=== PATIENT | female | born 1955 | race Caucasian/White ===

== ENCOUNTER 2025-03-27 09:19 | Outpatient (AMB) | payer OTHER, SELFPAY ==
--- NOTE | 2025-03-27 09:24 | MHC.OFFWIV ---
Intake Vital Signs 03/27/25 09:31 Height 5 ft 7 in Weight 246 lb BMI 38.5 BP 134/74 Blood Pressure Location Lt brachial Position Sitting Respiration 13 Pulse 86 Pulse Source Pulse Oximeter Temp 97.6 F Temp Source Oral Pulse Oximetry (%) 96 Oxygen Delivery Method Room Air Intake Visit Reasons: Bilateral leg rash /bilateral hand pain Intake Note: Patient c/o itchy rash on both legs and spreading to behind the knees x 6 days. Patient also c/o swollen and px on both hands. Patient Tobacco Use Status: Never used Tobacco Floor Molder Required: No Allergies No Known Allergies Allergy (Verified 03/27/25 09:37) Medication List - Last Reconciled 03/27/25 by LEORA Devlin- acetaminophen ER (Tylenol Arthritis Pain) 650 mg PO Q8H albuterol-budesonide 90-80 mcg/actuation (Airsupra) inhalations inhalation amlodipine 5 mg PO DAILY atorvastatin 40 mg PO DAILY budesonide-formoterol 160-4.5 mcg/actuation inhalation ibuprofen 400 mg PO Q8H Do you need a note to return to daycare/school/sports/work: No HPI HPI Comments History of Present Illness Details History of Present Illness - The patient is a 69-year-old female presenting with rash and hand pain. - Rash began 8-9 days ago post-exposure to high grass, characterized by itching and spreading. - Rash unresponsive to home treatments like alcohol, Benadryl, hydrocortisone, Epsom salts. - Significant hand pain for three months, with reduced functionality in gripping and dexterity. - History of Dupuytren's Contracture diagnosis, previously treated with cortisone injections, last R hand Oct 2024. - Was [facility]'d by [facility] in [facility] that has since closed. - Carpal tunnel surgeries performed prior due to functional impairment bilat. - Has initial intake at [facility] 04/2025 - Previous PCP: Dr Berrios who is retiring, would like to est care here. Review of Systems - Skin: Reports rash, itchiness, and spread behind knees and toes. - Musculoskeletal: Reports bilateral hand pain, finger swelling, limited motion. - Neurologic: Denies any numbness or tingling. Physical Exam General: Well developed, well nourished, in no acute distress. Appears stated age. Head: Normocephalic, atraumatic. Eyes: Pupils are equal, round and reactive to light and accommodation. Conjunctivae are clear. Vision grossly normal. BUE vascularly intact; has decreased active and passive ROM of wrists and fingers; unable to close fist d/t pain; + edema and deformity of bilat hands/fingers. Palmar nodes noted. No erythema, skin intact. Skin: see below. Discussion Notes The patient and I discussed the likely diagnosis of poison meenu dermatitis for her rash, and Dupuytren's contracture concerning her hand pain. I advised the patient on the use of Tecnu, an cxzs-flv-niwdsys product, to help dry out the rash, highlighting the importance of using and laundering a washcloth without reusing it. I also discussed tapering prednisone pills for the rash, mentioning the benefit it may provide to her hand symptoms as well. For the Dupuytren's contracture, I outlined the chronic nature of the disease, limitations that could arise, and considered occupational therapy as a non-invasive therapeutic option. We planned for the patient to continue with the [facility] follow-up for definitive management regarding possible recurrence or complication with contractures. I documented consent for treatment, and we confirmed that [facility] is the preferred pharmacy for medication prescriptions. Assessment and Plan 1. Poison Meenu Dermatitis - Recommend Tecnu for rash drying. - Start prednisone taper for 10 days. 2. Dupuytren's Contracture - Chronic condition. - Continue orthopedics follow-up. - Consider occupational therapy for management. RTO to [facility] care, sooner PRN Patient Instructions - Use Tecnu soap as directed for rash. - Start and complete prednisone taper as prescribed. - Avoid scratching to prevent spreading or worsening the rash. - Follow up with orthopedic appointment for hand therapy options. - Be cautious with the use of your hands until symptoms improve. Consent The patient consented to the proposed management plan for the rash and hand conditions, including the use of prednisone and Tecnu, understanding the potential benefits and risks involved. She acknowledged the chronic nature of Dupuytren's contracture and the potential effectiveness of occupational therapy, expressing understanding and agreement with follow-up plans for her hand condition. Consent was obtained verbally during today's visit. Patient was informed and verbally consented to the use of an ambient scribe for clinic note documentation during this visit. Total time spent caring for the patient today was 30 minutes. This includes time spent before the visit reviewing the chart, time spent during the visit, and time spent after the visit on documentation, reviewing laboratory results, diagnostic imaging, medications, performing a medically necessary evaluation, counseling on diagnoses, care coordination, ordering appropriate tests, ordering appropriate medications, review of tests performed by other providers, reporting test results with the patient, communication with other healthcare providers. [facility] Surgical History (Updated 03/27/25 @ 09:46 by Filomena Fay, [facility]) History of carpal tunnel release of both wrists Social History Patient Tobacco Use Status: Never used Tobacco Physical Exam Vital Signs: Last Vital Signs Temp 97.6 F 03/27/25 09:31 Pulse 86 03/27/25 09:31 Resp 13 03/27/25 09:31 BP 134/74 03/27/25 09:31 Pulse Ox 96 03/27/25 09:31 Oxygen Delivery Method Room Air 03/27/25 09:31 BMI result Body Mass Index 38.5 Assessment & Plan Assessment & Plan (1) Contact dermatitis: Code(s): L25.9 - Unspecified contact dermatitis, unspecified cause Qualifiers: Contact dermatitis type: allergic Contact dermatitis trigger: non-food plants Qualified Code(s): L23.7 - Allergic contact dermatitis due to plants, except food (2) Dupuytren's disease of palm of both hands: Code(s): M72.0 - Palmar fascial fibromatosis [Dupuytren] Plan . Medications: New prednisone 5 tabs x 2 days, 4 tabs x 2 days, 3 tabs x 2 days, 2 tabs x 2 days, 1 tab x 2 days and then STOP. 10 mg PO DIRECTED 10 days 30 tabs 0RF Patient Instructions: Patient Instructions - Use Tecnu soap as directed for rash. - Start and complete prednisone taper as prescribed. - Avoid scratching to prevent spreading or worsening the rash. - Follow up with orthopedic appointment for hand therapy options. - Be cautious with the use of your hands until symptoms improve. Advised to take the medication daily with food. If new lesions crop up while on the taper advised to return to the office as we may need to hold the taper and/or extend the taper to prevent recurrence. Advised to cover the areas to prevent spread using something like a Tegaderm. Wash linen to also help prevent spread. Continue to use the [id number] skin scrubs to help protect the rest of your skin. Do your best to avoid contact. Coding Level of Care Code Est Pt Level 4 (39754) Diagnoses Allergic contact dermatitis due to plants, except food L23.7 Contact dermatitis type: allergic Contact dermatitis trigger: non-food plants Dupuytren's disease of palm of both hands M72.0
[2025-03-27 09:31] VITALS: BP 134/74; PULSE 86; RESP 13; TEMP 36.4; O2SAT 96; BMI 38.5
== END 2025-03-27 09:52 | disposition home or self-care (01) ==
PROVIDERS: Visit Provider Nurse Practitioner Family
DX: L23.7 Allergic contact dermatitis due to plants, except food (principal); M72.0 Palmar fascial fibromatosis [Dupuytren]

== ENCOUNTER → 2025-03-27 09:19 | Outpatient (BNVA) | payer OTHER, SELFPAY | DX: Z13.89 Encounter for screening for other disorder (principal) ==

== ENCOUNTER 2025-05-03 14:49 | Outpatient (AMB) | payer OTHER, SELFPAY ==
--- NOTE | 2025-05-03 14:50 | A.OFFPC_ITS ---
Vital Signs 05/03/25 14:56 Height 5 ft 7 in Weight 246 lb 4 oz BMI 38.6 BP 138/74 Blood Pressure Location Rt brachial Position Sitting Respiration 12 Pulse 86 Pulse Source Pulse Oximeter Temp 97.6 F Temp Source Oral Pulse Oximetry (%) 96 Oxygen Delivery Method Room Air Intake Visit Reasons: EST CARE FROM WALK IN Intake Note: New patient to establish care. Patient c/o of having trouble sleeping. Bsw Required: No Allergies No Known Allergies Allergy (Verified 05/03/25 15:10) Medication List - Last Reconciled 05/03/25 by LEORA Devlin-BC acetaminophen ER (Tylenol Arthritis Pain) 650 mg PO Q8H albuterol-budesonide 90-80 mcg/actuation (Airsupra) inhalations inhalation amlodipine 5 mg PO DAILY atorvastatin 40 mg PO DAILY budesonide-formoterol 160-4.5 mcg/actuation inhalation ibuprofen 400 mg PO Q8H Tobacco use date assessed: 05/03/25 Fall risk assessment: No Falls in past year Last assessed Fall Risk: 05/03/25 Dental Screening Dental Screen Date: 05/03/25 Did you have a dental visit in the last 12 months?: Yes Did you have a dental problem in the last 6 months where you did not have access to dental care?: No Was dental information given to patient?: Patient has dentist HPI HPI Comments History of Present Illness Details 69 y/o F with allergic rhinits, Asthma, chronic diarrhea, HSV, HLd, HTN, lactose intolerance, Lumbar radiculopathy, DIEGO, Prediabetes, RLS, Obesity, Subclinical hypothyroid, hx of vasovagal syncope, Hepatic steaotosis, dupytrens contractures of hands, family hx breast ca (mom age 46, 53; 2 paternal aunts breast ca age 50, Hx of pyelonephritis 02/2023, L ovarian cyst, Uterine fibroid, renal cysts, diastolic HF (Echo 2021 EF 55-60% Grade 1 mild diastolic dysfunction, impaired LV relaxation) s/p loop recorder 2021 (removed 2023), Tonsils and adenoids, bladder sling, tubal ligation, CTS release, Alicia, Appy Fhx: breast ca; Dad 11/2024 has 3 children 2 sons 1 dtr Health Maintenance: Colon due 2028 Mammo 10/2024 wnl DEXA normal 2021 PAP 01/26/25 WNL Tdap 05/03/25 PCV 20 2022, PCV 13 2022, RSV 2023, SHINGLES 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 - Insomnia due to restless legs primaril y occurs during relaxation in the evening. - Long-standing sleep issues with these disturbed sleep patterns. - Attempts self-medication with legal ma jeovannyjuana gummies and ibuprofen. - Chronic pain plays a part in her insom roberto along w/ not being able to turn mind off; worries all of the time. Has never tried RX for sleep or RLS. - Utilizes CPAP without perceived benefi t due to frequent awakenings. - Chronic Stress & anxiety related to fa ther?s and 's illness, amongst other things. - Chronic arthralgia with previous rheum atology referral offering no new dx - Anxiety has necessitated cardiac evalu ations; heart tests returned normal. Stress, echo, holter, etc. - Started w/ UTI sx today and would like to rule this out. - Asthma controlled now; exacerbations h appen quickly. Saw mike > 15 year ago at [facility]. Allergies affect her. Has not trialed montelukast; is going away to [place] and wonders if she can have PRN predisone. - Ovarian cysts has consult w/ [facility] DEVELOPMENT REP upcom ing ? need for removal Review of Systems - General: Reports insomnia. - Musculoskeletal: Reports chronic joint pain; denies fibromyalgia. - Psychiatric: Reports anxiety and stres s. - Neurological: Reports insomnia amplifi ed by restless legs. - Respiratory: Reports episodes warranti ng steroid use; denies asthma exacerbation. - Genitourinary: Reports increased urina tion yesterday. - Gastrointestinal: Reports past chronic diarrhea, currently stable. - Endocrine: Denies any new issues with current medications. - Dermatological: Denies rashes or new s kin changes. Physical Exam General: Well developed, well nourished, in no acute distress. Appears stated age. Head: Normocephalic, atraumatic. Eyes: Pupils are equal, round and reactive to light and accommodation. Conjunctivae are clear. Lungs: Clear to auscultation bilaterally. No rales, rhonchi or wheeze noted. Good air flow in all [place]. Heart: Regular rate and rhythm. No murmurs, click, rubs or gallops are noted. Psych: Mood and affect appropriate Results: LABS 01/25/25 CBC,CMP, LIPIDS, URINE MICRO WNL Discussion Notes During the visit, we discussed the patient?s insomnia, which appears to be compounded by restless leg syndrome, anxiety & chronic musculoskeletal pain. I explained to the patient that duloxetine could help manage her anxiety and chronic pain, whereas ropinirole could specifically target the restless legs symptoms. We discussed the initiation of duloxetine at 20 mg daily with escalation after two weeks and starting ropinirole at 1 mg nightly, titrated based on response. I advised her on potential side effects. We addressed concerns about steroid dependency and discussed that strategies would focus on preventing acute exacerbations of her asthma. She has willingness to cease marijuana-derived treatments. I plan to refer her to a atomic physics teacher for her asthma and have provided a prescription for prednisone if needed acutely. The importance of updating her tetanus immunization was agreed upon. Assessment and Plan 1. Insomnia - Start ropinirole for restless leg dada gement at 1 mg. - Initiate duloxetine for anxiety and ch ronic pain. 2. Restless Leg Syndrome - Treat with nightly ropinirole. 3. Chronic Pain - Prescribe duloxetine. - Consider Celebrex in conjunction as ne eded. 4. Anxiety - Address with duloxetine. 5. Asthma - Refer to pulmonology. - Provide prednisone for acute exacerbat ions. 6. Hypertension, Hyperlipidemia - Maintain current regimen. 7. Immunization - Update tetanus vaccine. 8. UTI sx - check UA CC today. Results p ending @ this time. Scheduled a follow-up visit in four to six weeks to assess treatment outcomes. Consent Patient was informed and verbally consented to the use of an ambient scribe for clinic note documentation during this visit. Total time spent caring for the patient today was 60 minutes. This includes time spent before the visit reviewing the chart, time spent during the visit, and time spent after the visit on documentation, reviewing laboratory results, diagnostic imaging, medications, performing a medically necessary evaluation, counseling on diagnoses, care coordination, ordering appropriate tests, ordering appropriate medications, review of tests performed by other providers, reporting test results with the patient, communication with other healthcare providers. ON LICENSE OF [facility] Surgical History (Updated 05/03/25 @ 15:05 by Filomena Fay [facility]) History of carpal tunnel release of both wrists History of colonoscopy (~2018) Social History (Updated 05/03/25 @ 14:51 by Valencia Ricardo MA) Household Members: Spouse Housing: House Are you a primary critical care unit nurse to a significant other at home: No Do you presently have visiting nurse or other home services: No Alcohol intake: current Alcohol intake frequency: a few times a month Patient Tobacco Use Status: Never used Tobacco e-Cigarette/Vaping Use: Never Used Second Hand Smoke Exposure: No service: No Current occupational status: retired Cognitive needs: No Hearing needs: No Vision needs: Yes (wear glasses) Questionnaire PHQ-9 Over the last 2 weeks, how often have you been bothered by any of the following problems? 1. Little interest or pleasure in doing things: not at all 2. Feeling down, depressed, or hopeless: not at all 3. Trouble falling or staying asleep, or sleeping too much: several days 4. Feeling tired or having little energy: several days 5. Poor appetite or overeating: not at all 6. Feeling bad about yourself - or that you are a failure or have let yourself or your family down: not at all 7. Trouble concentrating on things, such as reading the newspaper or watching television: not at all 8. Moving or speaking so slowly that other people could have noticed. Or the opposite - being so fidgety or restless that you have been moving around a lot more than usual: not at all 9. Thoughts that you would be better off or of hurting yourself in some way: not at all Total score: 2 Depression Screening Interpretation: Negative Depression Screening Done: Yes 89700 - PHQ-9 Billing: Yes Source: Developed by Drs. Micheal Tarango, Sophie Renteria, Donis Segal and colleagues, with an educational ashley from [employer]. Thrive Questionnaire Date Thrive assessed: 05/03/25 I am a: Patient What is your living situation today?: I have a steady place to live Within the past 12 months, did the food you bought not last and you didn't have the money to get more?: Never true Within the past 12 months, did you worry whether your food would run out before you got money to buy more?: Never true Do you have trouble paying for medicines?: No Do you have trouble getting transportation to medical appointments?: No Do you have trouble paying your heating and electricity bill?: No Do you have trouble taking care of your child, family member or friend?: No Do you have trouble with day-to-day activities such as bathing, preparing meals, shopping, managing finances, etc.?: No Are you currently unemployed and looking for a job?: No Are you interested in more education?: No Please select the resources that you would like help with: None Currently or been in a relationship where the following occur: No concerns reported and I choose not to answer THRIVE Score: 0 AUDIT C Alcohol Use Questionnaire (AUDIT-C) 1. How often do you have a drink containing alcohol?: Monthly or less 2. How many drinks containing alcohol do you have on a typical day when you are drinking?: 1 or 2 3. How often do you have six or more drinks on one occasion?: Never Total Score: 1 Score Reviewed/Action Taken: Yes SUSANNA-7 AMB Questionnaire SUSANNA-7 Date SUSANNA - 7 assessed: 05/03/25 Feeling nervous, anxious, or on edge: 0 = Not at all Not being able to stop or control worryin = Not at all Worrying too much about different things: 0 = Not at all Trouble relaxin = Not at all Being so restless that it is hard to sit still: 0 = Not at all Becoming easily annoyed or irritable: 0 = Not at all Feeling afraid as if something awful might happen: 0 = Not at all Total SUSANNA-7 score (0-4 normal; 5-9 mild; 10-14 moderate; 15-21 severe): 0 Source: Developed by Drs. Micheal Tarango, Sophie Renteria, Donis Segal and colleagues, with an educational ashley from [employer]. SUSANNA-7 Assessment Billing SUSANNA-7 Assessment Tool: SUSANNA-7 Assessment 14178 Physical exam (Primary Care) Vital Signs: Last Vital Signs Temp 97.6 F 05/03/25 14:56 Pulse 86 05/03/25 14:56 Resp 12 05/03/25 14:56 BP 140/74 H 05/03/25 14:56 Pulse Ox 96 05/03/25 14:56 Oxygen Delivery Method Room Air 05/03/25 14:56 BMI result Body Mass Index 38.6 BMI Assessment/Plan discussion: High BMI High, discussed plan: lifestyle Tobacco/Smoking Status: Tobacco use Status Tobacco use date assessed 05/03/25 05/03/25 15:00 Patient Tobacco Use Status Never used Tobacco 05/03/25 15:04 e-Cigarette/Vaping Use Never Used 05/03/25 15:04 PHQ-9: PHQ-9 Score PHQ-9: Total score 2 05/03/25 15:07 Depression Screening Interpretation: Negative Thrive Assessment: Date of Thrive Assessment Date Thrive assessed 05/03/25 05/03/25 15:00 Currently or been in a relationship where the following occur: No concerns reported and I choose not to answer Coding Level of Care Code New Pt Level 5 (31948) Complex EM visit Add On G2211 Diagnoses Encounter to establish care Z76.89 Obesity (BMI 30-39.9) E66.9 Moderate persistent asthma without complication J45.40 Asthma persistence: persistent Asthma complication type: uncomplicated Mixed hyperlipidemia E78.2 Hyperlipidemia type: mixed hyperlipidemia Primary hypertension I10 Hypertension type: primary hypertension Prediabetes R73.03 RLS (restless legs syndrome) G25.81 Subclinical hypothyroidism E03.8 History of syncope Z87.898 NAFLD (nonalcoholic fatty liver disease) K76.0 Family history of breast cancer Z80.3 Left ovarian cyst N83.202 Uterine leiomyoma, unspecified location D25.9 Uterine leiomyoma location: unspecified location Renal cyst N28.1 Chronic diastolic heart failure I50.32 Heart failure chronicity: chronic Psychophysiological insomnia F51.04 Insomnia type: psychophysiologic Chronic pain syndrome G89.4 Chronic pain type: chronic pain syndrome DIEGO on CPAP G47.33 Need for Tdap vaccination Z23 SUSANNA (generalized anxiety disorder) F41.1 Dysuria R30.0 Additional Codes SUSANNA-7 Assessment Billing - SUSANNA-7 Assessment Tool: SUSANNA-7 Assessment 92884 ([id number]) PHQ-9 - 93915 - PHQ-9 Billing: Yes ([id number]) Assessment & Plan Assessment & Plan (1) Encounter to establish care: Code(s): Z76.89 - Persons encountering health services in other specified circumstances (2) Obesity (BMI 30-39.9): Code(s): E66.9 - Obesity, unspecified Category: Medical (3) Moderate asthma: Code(s): J45.909 - Unspecified asthma, uncomplicated Category: Medical Qualifiers: Asthma persistence: persistent Asthma complication type: uncomplicated Qualified Code(s): J45.40 - Moderate persistent asthma, uncomplicated (4) HLD (hyperlipidemia): Code(s): E78.5 - Hyperlipidemia, unspecified Category: Medical Qualifiers: Hyperlipidemia type: mixed hyperlipidemia Qualified Code(s): E78.2 - Mixed hyperlipidemia (5) HTN (hypertension): Code(s): I10 - Essential (primary) hypertension Category: Medical Qualifiers: Hypertension type: primary hypertension Qualified Code(s): I10 - Essential (primary) hypertension (6) Prediabetes: Code(s): R73.03 - Prediabetes Category: Medical (7) RLS (restless legs syndrome): Code(s): G25.81 - Restless legs syndrome Category: Medical (8) Subclinical hypothyroidism: Code(s): E03.8 - Other specified hypothyroidism Category: Medical (9) History of syncope: Comment: s/p loop recorder [id number] w/o events Code(s): Z87.898 - Personal history of other specified conditions Category: Medical (10) NAFLD (nonalcoholic fatty liver disease): Code(s): K76.0 - Fatty (change of) liver, not elsewhere classified Category: Medical (11) Family history of breast cancer: Comment: (mom age 46, 53; 2 paternal aunts breast ca age 50) Code(s): Z80.3 - Family history of malignant neoplasm of breast Category: Medical (12) Left ovarian cyst: Code(s): N83.202 - Unspecified ovarian cyst, left side Category: Medical (13) Uterine fibroid: Code(s): D25.9 - Leiomyoma of uterus, unspecified Category: Medical Qualifiers: Uterine leiomyoma location: unspecified location Qualified Code(s): D25.9 - Leiomyoma of uterus, unspecified (14) Renal cyst: Comment: bilat Code(s): N28.1 - Cyst of kidney, acquired Category: Medical (15) Diastolic heart failure: Comment: (Echo 2021 EF 55-60% Grade 1 mild diastolic dysfunction, impaired LV relaxation) Code(s): I50.30 - Unspecified diastolic (congestive) heart failure Category: Medical Qualifiers: Heart failure chronicity: chronic Qualified Code(s): I50.32 - Chronic diastolic (congestive) heart failure (16) Insomnia: Code(s): G47.00 - Insomnia, unspecified Category: Medical Qualifiers: Insomnia type: psychophysiologic Qualified Code(s): F51.04 - Psychophysiologic insomnia (17) Chronic pain: Code(s): G89.29 - Other chronic pain Category: Medical Qualifiers: Chronic pain type: chronic pain syndrome Qualified Code(s): G89.4 - Chronic pain syndrome (18) DIEGO on CPAP: Comment: sleep study 2019 Code(s): G47.33 - Obstructive sleep apnea (adult) (pediatric) Category: Medical (19) Need for Tdap vaccination: Code(s): Z23 - Encounter for immunization Category: Medical (20) SUSANNA (generalized anxiety disorder): Code(s): F41.1 - Generalized anxiety disorder Category: Medical (21) Dysuria: Code(s): R30.0 - Dysuria Plan . Orders: Orders UA CC w/rflx Micro + Cult Today R30.0 - Dysuria TDaP Immunization Today Z23 - Encounter for immunization Referrals Pulmonology Referral G47.33 - Obstructive sleep apnea (adult) (pediatric), J45.909 - Unspecified asthma, uncomplicated Medications: New ropinirole administer 1-3 hours before bedtime 1 mg PO BEDTIME 30 tabs 1RF duloxetine 1 tab daily x 2 weeks then increase to 1 tab bid 20 mg PO DIRECTED 60 caps 1RF prednisone 40 mg (2 x 20 mg) PO DAILY 28 tabs 0RF Boostrix Tdap (diphth,pertus(acell),tetanus) 0.5 mL IM ONCE 0.5 mL 0RF NS Z23 - Encounter for immunization Patient Instructions: Patient Instructions - Start ropinirole for leg symptoms; take 1 mg 1-3 hours before bedtime nightly, if no improvement increase to 2 tabs. Wait another 3 days then increase to max of 3 tabs daily if needed. - Take duloxetine daily in the morning for two weeks, then increase to twice daily. - Use prednisone as needed only for severe asthma attacks. - Refrain from using marijuana gummies. - Attend pulmonology appointment when scheduled. - Receive tetanus vaccination today. - Urine sample obtained today; i will submit results to the portal and treat as needed. - Schedule follow-up in four to six weeks to review efficacy of meds. Walk-In Care (Urgent Care): We Make it Easy Walk-in for urgent medical issues such as: ? Seasonal Allergies ? Insect Bites ? Cough ? Diarrhea ? Acute Asthma Attacks ? Back, Knee or Joint Pain ? Ear Infection ? Fever without a Rash ? Headaches ? Nausea ? [place] Eye, Rash or Skin Irritation ? Sore Throat ? Sports Physicals ? Vomiting Most insurances are accepted. Patients do not need to be part of the [facility] to seek care at the walk-in clinic. Locations [facility] , [place] [address] ? [phone] [facility] [place] Walk-In Care in [place] provides services to ages 18 and over. Open Thursday-Thursday: 8 a.m. to 5 p.m. and Thursday: 9 a.m. to 3 p.m.* *Hours may vary due to staffing availability. To confirm Walk-In Care hours in [place], please call [phone]. [address] [place] [id number] ? [phone] [facility] [place] Walk-In Care in [place] provides services to ages 12 and over. Open Thursday-Thursday: 8 a.m. to 5 p.m. Hours may vary due to staffing availability. To confirm Walk-In Care hours in [place], please call [phone]. LABORATORY SERVICES: [facility] Lab ? Primary Location [address] [place] [address] Thursday through Thursday 6:00 AM ? 5:00 PM Thursday 7:00 AM ? 11:00 AM* [phone] The [facility] Lab is centrally located near the front entrance of the [facility] for easy outpatient access. Convenient parking is provided for outpatients. *Hours may vary due to staffing availability. To confirm Laboratory hours for any location, please call [phone]. Offsite Location For your convenience, we offer offsite laboratory draw stations at the following locations: [address] [facility], [place] [address] [facility], [address], [place] Thursday through Thursday 7:30 AM ? 1:00 PM* [phone] *Hours may vary due to staffing availability. To confirm Laboratory hours for any location, please call [phone]. [place] ? [address] [facility], [place] Thursday through Thursday 6:00 AM ? 3:30 PM* Thursday 6:30 AM ? 3 PM* [phone] *Hours may vary due to staffing availability. To confirm Laboratory hours for any location, please call [phone]. [address] [facility] Thursday through Thursday 7:30 AM ? 4:00 PM* [phone] *Hours may vary due to staffing availability. To confirm Laboratory hours for any location, please call [phone] [place] [address] Thursday through 9:00 AM ? 4:00 PM* *Hours may vary due to staffing availability. To confirm Laboratory hours for any location, please call [phone]. Appointments are not necessary. Walk-ins are welcome. Like all the departments throughout the [facility], our Lab undergoes frequent reviews to ensure the quality and accuracy of test results, and our staff takes special pride in its status as a nationally accredited facility. Patient Portal: ONE PATIENT. ONE RECORD. BETTER CARE. [facility] has a fully integrated, cutting-e [employer] mobile electronic health information system that has revolutionized the way we care for our patients and manage our organization. This system improves communication and coordination enabling us to provide safe, higher-quality care, and an overall positive experience for staff and patients. Our first priority, as always, is to deliver the highest quality care possible. The system is running in the background supporting that priority. This portal is for all [facility] and [facility] services and practices. If you are experiencing any technical difficulties with enrolling or logging into the Patient Portal please complete the [facility] Patient Portal Technical Support Form. [facility] now offers a new secure on-line interactive tool for patients to review their health information ? ?Patient Portal. This interactive web portal will enable patients and their families to take an active role in their care by providing easy, secure access to their health information via the internet. The Patient Portal provides patients with instant access to their health information, including laboratory results, medications, allergies, demographic information, visit history, and more. In addition to managing their own care, parents and health care proxies with authorized consent will appreciate the ability to access the records of those individuals for whom they provide care. Please note: if you wish to gain access (Proxy) to another patient?s portal, you will be required to come to the Medical Records Department in person at [facility]. Both the patient giving proxy access and the proxy will need to provide photo identification and complete the appropriate authorization. The Patient Portal also allows track their appointments online. The [facility] Patient Portal also saves patients time by allowing them to submit updates to their demographic and contact information prior to their visits. Portal email notifications will also alert patients to any new activity on their portal, such as test results and new appointments. In order to initially enroll in the [facility] Patient Portal, you will need to enter some required information including the following: * your [facility] Medical Record number * your personal home email address * name * date of Please note: In order to enroll in the [facility] Patient Portal, we need to have your email address on file in your electronic medical record. ?The email address needs to be specific for one person (yourself) in order for your Portal enrollment to be successful. ?You can update your email address in person with our Registration staff when you are registering for a hospital visit. ?Otherwise, you will need to come to the Health Information Management (Medical Records) Department at [facility]. ?We are open from Thursday ? Thursday from 7:30 a.m. ? 4:30 p.m. ?You will be required to present a photo id. Once you have successfully enrolled in the Patient Portal, you will receive a one-time user id and password for the Portal, sent to your email address. ?This will allow you to log into the Patient Portal within 99 hrs and reset your own logon id and password, and define personal security questions. ?Once your permanent login and password have been set, you can log into the [facility] Patient Portal at any time via the blue button above or from the Portal Logon button on any page of the [facility] website. [facility] and [facility] encourage all of our patients to enroll in Patient Portal as it presents a valuable opportunity for patients and their families to actively participate in their care and stay healthy Welcome to [facility]. ?We look forward to working with you.
[2025-05-03 14:56] VITALS: BP 138/74; PULSE 86; RESP 12; TEMP 36.4; O2SAT 96; BMI 38.6
--- OUTSIDE RECORDS SUMMARY | 2025-05-03 15:24 | XMS_ITS | Encounter Summary ---
Author Organization [facility] Address [address] [place] [address] [place] [phone] Phone Care Team Providers Care Database Design Analyst Name Role Phone Rahat English MD Primary Care Provider + Rahat English MD Primary Care Provider + Encounter Details Date Type Department Care Team (Late st Contact Info) Description 09/17/2017 Ancillary Orders [facility] [address] [place] [id number] Catherine Tidwell MD [address] [facility], [address] [place] [address] [email or web address] Breast screening Social History Tobacco Use Types Packs/Day Years Used Date Smoking Tobacco: Never Assessed Comments Unknown Sex and Gender Information Value Date Recorded Sex Assigned at Female 11/08/2017 1:34 PM EST Legal Sex Female 7:49 PM EST Gender Identity Female 11/08/2017 1:34 PM EST Sexual Orientation Straight 11/08/2017 1: 34 PM EST documented as of this encounter Plan of Treatment Not on file documented as of this encounter Results * BI MAMMOGRAM SCREENING WITH TOMOSYNTHESIS WITH CAD (BILATERAL) (11/02/2017 9:49 AM EST) Anatomical Region Laterality Modality Breast Left, Breast Right, Breast Bilateral Bila teral Mammography 11/02/2017 10:2 2 AM EST Impressions 11/02/2017 10:24 AM EST No mammographic evidence of malignancy. BI-RADS CATEGORY: 1 - Negative. DENSITY: There are scattered fibroglandular densities. POS - [id number] Narrative 11/02/2017 10:24 AM EST Standard digital full-field 2-D C view and two-plane tomographic imaging was performed and compared with multiple prior studies, most recently 09/12/2016, with utilization of computer-aided detection. The breasts are composed of scattered fibroglandular densities. The stromal markings are essentially unchanged in overall appearance and distribution. No dominant spiculated mass, suspicious clustered microcalcifications, or focal zone of pathologic skin thickening or retraction are noted to have arisen in the interim. Procedure Note Jostin Zeng MD - 11/02/2017 Standard digital full-field 2-D C view and two-plane tomographic imagingwas performed and compared with multiple prior studies, most efybgljk15/02/2016, with utilization of computer-aided detection. The breasts are composed of scattered fibroglandular densities. Thestromal markings are essentially unchanged in overall appearance anddistribution. No dominant spiculated mass, suspicious clusteredmicrocalcifications, or focal zone of pathologic skin thickening orretraction are noted to have arisen in the interim. IMPRESSION: No mammographic evidence of malignancy. BI-RADS CATEGORY: 1 - Negative. DENSITY: There are scattered fibroglandular densities. POS - [id number] Catherine Tidwell MD IMG MG EXAMS Final Result documented in this encounter Visit Diagnoses Diagnosis Breast screening Breast screening, unspecified Breast screening Breast screening, unspecified documented in this encounter Additional Health Concerns Infection Onset Date Last Indicated Resolved Time CoV-Risk 12/04/2024 12/04/2024 12/15/2024 1:21 AM EST documented as of this encounter Care Teams Database Design Analyst Relationship Specialty Start Date End Date Rahat English MD [address] [place] [id number] PCP - General Internal Medicine 09/17/17 04/14/22 Rahat English MD [address] [place] [address] [address] [place] [address] PCP - General Internal Medicine 04/15/22 documented as of this encounter Additional Source Comments The information contained in this document represents components of the legal health record. It is not the complete legal health record.[facility]
--- OUTSIDE RECORDS SUMMARY | 2025-05-03 15:24 | XMS_ITS | Data Portability ---
Author Organization [facility]uev[facility], [facility] Address [address] [place] [address] Assessment No assessment recorded. Plan of Treatment Reminders Order Date Submit Date Provider Last Modified By Organization Details Last Modified Time Details Appointments RUBA HAINES T 30 2024 09:15A M Shameka eagle MD Not available Not available Not available Lab None record ed. Referral physic al therap ist referr al - Evalua te & Rx Lumbar Stabil gabrielatio fco dickens 2023 024 [facility] [place], [address], [address], [place], [address], 02/25/2024 08:48:59 Procedures None record ed. Surgeries None record ed. Imaging XR, lumbos acral spine 2023 024 [id number], [address], [place], [address], 02/26/2024 15:14:22 Medication Orders Medrol (Humza) 4 mg tablet s in a dose pack 2023 024 [id number], [address] [facility], [place], [address], 02/12/2024 09:03:37 Patient TargetsNo targets recorded. Patient InstructionsNo instructions recorded. Reason for Referral Physical Therapist Referral for Spinal stenosis of lumbar region Evaluate & RxLumbar Stabilization Program Referring Physician: Ken Villela, Orthopedic Surgery, [id number] Encounter Date: 02/12/2024 Problems Name Problem SNOMED Code Status Onset Date Resolution Date Notes Provider Name and Address Organization Details Recorded Time Nontrauma tic partial rupture of right rotator cuff 886155672744 9109 Active 2016 Problem Code: M75.111; Problem Code Type: ICD-10; Status: 'A'; Not Available [facility] 4 11:57:58 Low back pain 913445701 Active 2023 Ken Villela PA-C [address], [place], [address] , [facility] 4 08:46:36 Spinal stenosis of lumbar region 87293381 Active 2023 Ken Villela PA-C [address], [place], [address] , [facility] 4 09:01:02 Problem Notes None recorded. Medical Equipment None Reported. Allergies Allergen ID Allergen Name Allergen Category Reaction Reaction Severity Criticality Documentation Date Start Date Code Code System Note Provider Name and Address Organization Details Recorded Time 266782 tree and shrub pollen environme nt,medica tion Not available Not available Not available 02/12/2024 [id number] Ken Villela PA-C [address], [place], [address], [facility] 4 08:45:48 Medications Name Sig Start Date Stop Date Status Note LastModified by Organization Details LastModified Time amoxicillin 500 mg capsule TAKE 4 CAPSULES 1 HOUR PRIOR TO APPOINTMENT active Not Available Not Available Not Available atorvastatin 40 mg tablet TAKE 1 TABLET BY MOUTH EVERY DAY active Not Available Not Available No t Available prednisone 10 mg tablet PLEASE SEE ATTACHED FOR DETAILED DIRECTIONS active Not Available Not Available N ot Available atorvastatin 20 mg tablet TAKE 1 TABLET BY MOUTH EVERY DAY active Not Available Not Available No t Available albuterol sulfate 2.5 mg/3 mL (0.083 %) solution for nebulization INHALE 3 ML BY NEBULIZER EVERY 4 HOURS NEEDED FOR WHEEZING/SH ORTNESS OF BREATH active Not Available Not Available No t Available cefpodoxime 200 mg tablet TAKE 1 TABLET BY MOUTH EVERY 12 HOURS FOR 10 DAYS active Not Available Not Available Not Available valacyclovir 1 gram tablet TAKE 1 TABLET BY MOUTH 2 TIMES A DAY START POOJA HERPES LABIALIS active Not Available Not Available No t Available prednisone 20 mg tablet TAKE 3 TABLETS BY MOUTH EVERY DAY active Not Available Not Available No t Available ciprofloxaci n 250 mg tablet TAKE 1 TABLET BY MOUTH EVERY 12 HOURS FOR 3 DAYS active Not Available Not Available N ot Available amlodipine 5 mg tablet TAKE 1 TABLET BY MOUTH EVERY DAY active Not Available Not Available No t Available prednisolone acetate 1 % eye drops,suspen seamus INSTILL 1 DROP INTO AFFECTED EYE TWICE A DAY active Not Available Not Available No t Available erythromycin 5 mg/gram (0.5 %) eye ointment APPLY A SMALL AMOUNT INTO THE RIGHT EYE AT BEDTIME FOR 1 WEEK active Not Available Not Available No t Available pseudoephedr ine-guaifene sin ER 80-700 mg tablet,exten ded release as directed TAKE TWO TABLETS Q 6HRS PRN PAINDO NOT DRIVE ON THIS MEDICATION 2016 active Statu s: 'Curr ent'; Not Available Not Available Not Available omeprazole 20 mg capsule,james yed release TAKE 1 CAPSULE BY MOUTH EVERY DAY active Not Available Not Available No t Available zolpidem 5 mg tablet TAKE 1 TABLET BY MOUTH EVERY DAY AT BEDTIME NEEDED FOR INSOMNIA active Not Available Not Available No t Available methylpredni solone 4 mg tablets in a dose pack TAKE 6 TABLETS ON DAY 1 DIRECTED ON PACKAGE AND DECREASE BY 1 TAB EACH DAY FOR A TOTAL OF 6 DAYS active Not Available Not Available No t Available albuterol sulfate HFA 90 mcg/actuatio n aerosol inhaler INHALE 2 PUFFS INTO THE LUNGS EVERY 6 HOURS NEEDED FOR WHEEZE active Not Available Not Available No t Available fluticasone propionate 50 mcg/actuatio n nasal spray,suspen seamus SPRAY 2 SPRAYS INTO EACH NOSTRIL EVERY MORNING active Not Available Not Available No t Available loratadine 10 mg tablet TAKE 1 TABLET BY MOUTH EVERY DAY active Not Available Not Available No t Available amoxicillin 875 mg-potassium clavulanate 125 mg tablet TAKE 1 TABLET BY MOUTH TWICE A DAY FOR 10 DAYS active Not Available Not Available No t Available moxifloxacin 0.5 % eye drops INSTILL 1 DROP INTO AFFECTED EYE(S) 3 TIMES A DAY active Not Available Not Available Not Available fluocinolone acetonide oil 0.01 % ear drops PLACE 5 DROPS INTO BOTH EARS 2 TIMES A DAY FOR 14 DAYS active Not Available Not Available Not Available olopatadine 0.2 % eye drops ONE DROP IN EACH EYE ONCE A DAY NEEDED FOR IRRITATION active Not Available Not Available N ot Available budesonide-f ormoterol HFA 160 mcg-4.5 mcg/actuatio n aerosol inhaler INHALE 2 PUFFS TWICE A DAY active Not Available Not Available No t Available Vitals Date Recorded Body height Body mass index (BMI) Body weight Provider Name and Address Organization Details Last Updated DateTime 02/12/2024 170.18 cm 38.8 kg/m2 853292.91 g Ken Villela PA-C [facility] [address], [place], [address], [place] [facility] 02/12/2024 08:45:02 Social History None recorded. Functional Status None recorded. Mental Status None recorded. Family History Nothing Reported. Medical History Condition Response Arthritis Y Asthma Y Sleep Apnea Y Hypertension Y Cholesterol Y Gynecological HistoryNo gynecological history recorded. Obstetrics History GPAL:G 0 P 0 0 0 0 Past Encounters Encounter ID Performer Location Encounter Start Date Encounter Closed Date Diagnosis/Indication Diagnosis SNOMED-CT Code Diagnosis ICD10 Code Diagnosis Note [id number] Ken Villela [place] [address] 02/12/2024 08:34:18 02/25/2024 08:48:58 Low back pain 416621054 M54.50 Spinal jeff nosis of lumbar region 73617728 M48.061 Health Concerns Section Related Observation LastModified by Organization Detai ls LastModified Time None Recorded Concern Status LastModified by Organization Details LastModified Time None Recorded Advance Directives Directive None Recorded Payers Insurance Date Sequence Insurance Name Policy Number Policy Mendoza Covered Member ID Mendoza Member ID Guarantor Name 04/18/2025 1 FERNANDO (PPO) [id number] [place] Saucedo [id number] Ellis Saucedo Notes Date Note Type Note Provider Name and Address Organization Details Recorded Time 02/12/2024 text/html I am seeing the patient today under the supervision of Dr. De Jesus who was available but who did not see the patient for today's Urgent Care walk in visit. HPI: Patient is a 68-year-old female who comes into urgent care with chief complaint of low back and neck pain. She reports symptoms have been ongoing for several months in duration she denies any radicular symptoms denies any falls. She has taken oral steroids in the past and given her temporary relief she has not had any formal physical therapy. Past family, medical, social history and review of systems has been reviewed, updated and signed by me and is located in the patient s chart. PHYSICAL EXAMINATION: The patient is well appearing and in no apparent distress. Alert and oriented x3. Gait is symmetric. Examination of her cervical spine shows mild kyphotic bump in the back of her neck, restricted range of motion no radicular symptoms, intact motor function to deltoid bicep and tricep. Examination of the lumbar spine today findings include restricted range of motion about 50% normal, no active dural signs, symptoms are alleviated with sitting and improved with standing tenderness to palpation along paraspinous musculature, intact knee flexion strength extension strength plantarflexion dorsiflexion and EHL function. Peripheral, vascular, lymphatic examination, skin, neurological, coordination, reflexes, sensation are within normal limits. X-RAY REPORT: X-rays were ordered, obtained and independently reviewed today at [facility] 2 views of the lumbar spine show degenerative lumbar spine disease from L3-L5. 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 PLAN: Treatment options reviewed recommended physical therapy which was provided, additionally recommended performed prescription for Medrol Dosepak risk factors of these medications discussed. If symptoms not improve would consider physiatry for follow-up care and talk about injection management which we currently do not provide in our office. Ken Villela PA-C [address] [facility] [address], [place], [address], [facility] 02/12/2024 09:08:32 OBGyn Episode No OBEpisode recorded.
== END 2025-05-03 15:54 | disposition home or self-care (01) ==
LOC: HO.HMCFM 14:50
PROVIDERS: PCP Nurse Practitioner Family; Visit Provider Nurse Practitioner Family
DX: I11.0 Hypertensive heart disease with heart failure (principal); I50.32 Chronic diastolic (congestive) heart failure; E66.9 Obesity, unspecified; Z68.38 Body mass index [BMI] 38.0-38.9, adult; J45.40 Moderate persistent asthma, uncomplicated; Z76.89 Persons encountering health services in other specified circumstances; E78.2 Mixed hyperlipidemia; R73.03 Prediabetes; G25.81 Restless legs syndrome; R30.0 Dysuria; Z87.898 Personal history of other specified conditions; Z23 Encounter for immunization

== ENCOUNTER 2025-05-03 15:44 | Outpatient (REF) | payer OTHER, SELFPAY ==
[2025-05-03 17:44] LABS: Appearance Urine Clear; Glucose Urine UA Negative (Negative); PH 6.0 (5.0-9.0); Specific Gravity - Urine 1.020 (1.005-1.025); UMIC TRIGGER UACC YES
[2025-05-03 18:05] LABS: UACC Culture Trigger YES
== END 2025-05-03 15:45 | disposition home or self-care (01) ==
LOC: HO.WFDLDS 15:44
PROVIDERS: Visit Provider Nurse Practitioner Family
DX: Z76.89 Persons encountering health services in other specified circumstances (principal); Z23 Encounter for immunization; E66.9 Obesity, unspecified; Z68.38 Body mass index [BMI] 38.0-38.9, adult; J45.40 Moderate persistent asthma, uncomplicated; E78.2 Mixed hyperlipidemia; R73.03 Prediabetes; G25.81 Restless legs syndrome; E03.8 Other specified hypothyroidism; K76.0 Fatty (change of) liver, not elsewhere classified; N83.202 Unspecified ovarian cyst, left side; D25.9 Leiomyoma of uterus, unspecified; N28.1 Cyst of kidney, acquired; I11.0 Hypertensive heart disease with heart failure; I50.32 Chronic diastolic (congestive) heart failure; F51.04 Psychophysiologic insomnia; G89.4 Chronic pain syndrome; G47.33 Obstructive sleep apnea (adult) (pediatric); F41.1 Generalized anxiety disorder; R30.0 Dysuria; Z99.89 Dependence on other enabling machines and devices; Z87.898 Personal history of other specified conditions; Z80.3 Family history of malignant neoplasm of breast; Z13.31 Encounter for screening for depression; Z13.39 Encounter for screening examination for other mental health and behavioral disorders
CPT/HCPCS: 81001; 87086; 87088; 87186; 90471; 90715; 96127

== ENCOUNTER 2025-06-07 10:24 | Outpatient (AMB) | payer OTHER, SELFPAY ==
--- NOTE | 2025-06-07 10:26 | A.OFFPC_ITS ---
Vital Signs 06/07/25 10:31 06/07/25 10:58 Height 5 ft 7 in Weight 236 lb BMI 37.0 BP 142/78 H 136/84 Blood Pressure Location Lt brachial Lt brachial Position Sitting Sitting Respiration 13 Pulse 76 Pulse Source Pulse Oximeter Temp 97.6 F Temp Source Oral Pulse Oximetry (%) 96 Oxygen Delivery Method Room Air Intake Visit Reasons: 4-6 weeks 30 min fu on med start Intake Note: Follow up on med start. Patient is having a partial hysterectomy surgery on 06/14/25. Manager Pricing Required: No Allergies No Known Allergies Allergy (Verified 06/07/25 10:39) Medication List - Last Reconciled 06/07/25 by LEORA Devlin-LUCILA acetaminophen ER (Tylenol Arthritis Pain) 650 mg PO Q8H albuterol-budesonide 90-80 mcg/actuation (Airsupra) inhalations inhalation amlodipine 5 mg PO DAILY atorvastatin 40 mg PO DAILY budesonide-formoterol 160-4.5 mcg/actuation inhalation cefixime 400 mg PO DAILY 7 days duloxetine 20 mg PO DIRECTED ibuprofen 400 mg PO Q8H prednisone 40 mg (2 x 20 mg) PO DAILY ropinirole 1 mg PO BEDTIME Tobacco use date assessed: 06/07/25 Fall risk assessment: No Falls in past year Last assessed Fall Risk: 06/07/25 Dental Screening Dental Screen Date: 06/07/25 Did you have a dental visit in the last 12 months?: Yes Did you have a dental problem in the last 6 months where you did not have access to dental care?: No Was dental information given to patient?: Patient has dentist HPI HPI Comments History of Present Illness Details 69 y/o F with allergic rhinits, Asthma, chronic diarrhea, HSV, HLd, HTN, lactose intolerance, Lumbar radiculopathy, DIEGO, Prediabetes, RLS, Obesity, Subclinical hypothyroid, hx of vasovagal syncope, Hepatic steaotosis, dupytrens contractures of hands, family hx breast ca (mom age 46, 53; 2 paternal aunts breast ca age 50, Hx of pyelonephritis 02/2023, L ovarian cyst, Uterine fibroid, renal cysts, diastolic HF (Echo 2021 EF 55-60% Grade 1 mild diastolic dysfunction, impaired LV relaxation) s/p loop recorder 2021 (removed 2023), Tonsils and adenoids, bladder sling, tubal ligation, CTS release, Alicia, Appy Fhx: breast ca; Dad 11/2024 has 3 children 2 sons 1 dtr Health Maintenance: Colon due 2027 Mammo 10/2024 wnl DEXA normal 2021 PAP 01/26/25 WNL Tdap 05/03/25 PCV 20 2022, PCV 13 2022, RSV 2023, SHINGLES Specialists: Mon[facility]al Stonem[employer] Dr Diya Gonzalez [facility] Dr Diya Gonzalez [facility] Will be having Surgery for cyst removal 06/14/25 Will remove bilat tubes and ovaries 06/14/25 at [facility] History of Present Illness - The patient is a 69-year-old female pr esenting with anxiety, restless legs syndrome, insomnia, and chronic pain management. - Initial side effects of nauseas and GI upset came from ABT for UTI. Resolved after completion. UTI sx are resolved. Feels great taking the duloxetine 20 mg in the morning. Did not increase to twice per day as she did not feels that this was needed. She started the ropinirole 1 mg at bedtime. Reports for the 1st time in a long time she is sleeping, even dreaming. Her overall chronic pain has improved drastically. She has even lost 10 lb. In regards to her hands, she met with a hand surgeon who gave her a cortisone injection in bilateral hands on the 25 of April. This is greatly reduced her pain and improve her range of motion. There was some question of whether or not this was really Dupuytren's versus a rheumatologic disorder. Chart review shows that she has already had an extensive rheumatologic workup and it is unlikely that this is a new rheumatologic disease. Be that as it may she is feeling better. Reviewed with her briefly occupational therapy, would like to hold off on this for now as she will be proceeding with surgery for an ovarian cyst removal. She endorses some mild elevation in her blood pressure upon monitoring at home with systolics in the 150s at times in a couple of diastolic readings in the 90s. She denies any chest pain or shortness of breath. She does have sleep apnea and this is managed with her CPAP. Review of Systems - Musculoskeletal: Reports stiffness and pain in hands; Denies swelling currently. - Neurological: Reports improvement in r estless legs syndrome. - Psychological: Reports decreased anxie ty; Denies worsening of symptoms. - Sleep: Reports insomnia improvement; R eports deep sleep and dreaming. - Cardiovascular: Reports occasional ramona vated blood pressure. - Respiratory: Reports asthma; Denies cu rrent respiratory symptoms. - Gastrointestinal: Denies current sympt oms after discontinuing UTI medication. - General: Denies fever, chills. Physical Exam General: Well developed, well nourished, in no acute distress. Appears stated age. Head: Normocephalic, atraumatic. Eyes: Pupils are equal, round and reactive to light and accommodation. Conjunctivae are clear. Lungs: Clear to auscultation bilaterally. No rales, rhonchi or wheeze noted. Good air flow in all [place]. Heart: Regular rate and rhythm. No murmurs, click, rubs or gallops are noted. Pulses: Peripheral pulses are equal and palpable bilaterally. Extremities: No clubbing, cyanosis nor edema is noted. Psych: Mood and affect appropriate Results: EKG today: NSR CMP, CBC today: see results below Here today for preoperative clearance. Surgery Type: bilateral salpingo-oophorectomy (BSO Anesthesia Type: General Surgeon: Dr Diya Peters Date: 06/14/2025 Any past surgical procedures: Y see above Any complications from anesthesia or in post-op period: Reports difficulty waking up after surgery. ASA or NSAID Use: No Current smoker: No Alcohol use: No Drug use: No METs: > 4 climb flight of stairs, golf, walk, yardwork Medical history: Asthma Y COPD N Obesity BMI 37.0 Diabetes N [place] < 6 weeks, unstable angina, severe valve disease N CHF (Echo 2021 EF 55-60% Grade 1 mild diastolic dysfunction, impaired LV relaxation) RCRI is Class 2 Risk Stratification: 5% Discussion Notes I discussed the management plan with the patient, focusing on anxiety, restless legs syndrome, insomnia, chronic pain, and the recently diagnosed ovarian cyst. I explained the choice to continue duloxetine at a once-daily dose and ropinirole at bedtime due to their current efficacy. We discussed the risk of elevating blood pressure management given recent weight loss and the importance of observing current levels until post-surgical recovery. The need for follow-up on hand pain and considering occupational therapy was discussed. TThe next follow-up for postoperative review and to re-evaluate hypertension was discussed. Patient was given time to ask questions. All questions were answered to their satisfaction. Assessment and Plan 1. Insomnia - Cont ropinirole for restless leg manag ement at 1 mg. - Cont duloxetine for anxiety and chroni c pain. 2. Restless Leg Syndrome - Treat with nightly ropinirole. 3. Chronic Pain/Anxiety - Prescribe duloxetine. - Consider Celebrex in conjunction as ne eded. 4. Chronic Hand Pain - Consider occupational therapy for infl ammation. 5. Asthma - Refer to pulmonology. - Provide prednisone for acute exacerbat ions PRN only 6. Hypertension, Hyperlipidemia - Maintain current regimen. - Monitor BP. At Goal today. 7. Immunization - Update tetanus vaccine. 8. Pre-Op Clearance: Patient is medical ly cleared to proceed with surgery. Patient Instructions - Continue taking duloxetine once daily and ropinirol at bedtime. - Monitor blood pressure at home; report any significant increases. - Follow up after surgery to assess van very and re-evaluate hypertension medication. - Consider occupational therapy for hand pain if symptoms persist. - Notify the medical office of any new o r worsening symptom - RTO Nov for FU sooner as needed. Consent Patient was informed and verbally consented to the use of an ambient scribe for clinic note documentation during this visit. Total time spent caring for the patient today was 60 minutes. This includes time spent before the visit reviewing the chart, time spent during the visit, and time spent after the visit on documentation, reviewing laboratory results, diagnostic imaging, medications, performing a medically necessary evaluation, counseling on diagnoses, care coordination, ordering appropriate tests, ordering appropriate medications, review of tests performed by other providers, reporting test results with the patient, communication with other healthcare providers. COUNTS INCLUDE 234 BEDS AT THE [facility] Surgical History (Updated 05/03/25 @ 15:05 by JOSE Devlin) History of carpal tunnel release of both wrists History of colonoscopy (~2018) Social History (Updated 05/03/25 @ 15:04 by Valencia Ricardo MA) Household Members: Spouse Both parents involved: No Caregiver staying overnight: No Housing: House Are you a primary child care attendant to a significant other at home: No Do you presently have visiting nurse or other home services: No 75 years or older and lives alone: No Alcohol intake: current Alcohol intake frequency: a few times a month Patient Tobacco Use Status: Never used Tobacco e-Cigarette/Vaping Use: Never Used Second Hand Smoke Exposure: No service: No Current occupational status: retired Cognitive needs: No Hearing needs: No Vision needs: Yes (wear glasses) Questionnaire PHQ-9 Over the last 2 weeks, how often have you been bothered by any of the following problems? 1. Little interest or pleasure in doing things: not at all 2. Feeling down, depressed, or hopeless: not at all 3. Trouble falling or staying asleep, or sleeping too much: not at all 4. Feeling tired or having little energy: not at all 5. Poor appetite or overeating: not at all 6. Feeling bad about yourself - or that you are a failure or have let yourself or your family down: not at all 7. Trouble concentrating on things, such as reading the newspaper or watching television: not at all 8. Moving or speaking so slowly that other people could have noticed. Or the opposite - being so fidgety or restless that you have been moving around a lot more than usual: not at all 9. Thoughts that you would be better off or of hurting yourself in some way: not at all Total score: 0 Depression Screening Interpretation: Negative Depression Screening Done: Yes 29772 - PHQ-9 Billing: Yes Source: Developed by Drs. Micheal Tarango, Sophie Renteria, Donis Segal and colleagues, with an educational ashley from [employer]. Thrive Questionnaire Date Thrive assessed: 05/03/25 I am a: Patient What is your living situation today?: I have a steady place to live Within the past 12 months, did the food you bought not last and you didn't have the money to get more?: Never true Within the past 12 months, did you worry whether your food would run out before you got money to buy more?: Never true Do you have trouble paying for medicines?: No Do you have trouble getting transportation to medical appointments?: No Do you have trouble paying your heating and electricity bill?: No Do you have trouble taking care of your child, family member or friend?: No Do you have trouble with day-to-day activities such as bathing, preparing meals, shopping, managing finances, etc.?: No Are you currently unemployed and looking for a job?: No Are you interested in more education?: No Please select the resources that you would like help with: None THRIVE Score: 0 AUDIT C Alcohol Use Questionnaire (AUDIT-C) 1. How often do you have a drink containing alcohol?: Never 3. How often do you have six or more drinks on one occasion?: Never Total Score: 0 SUSANNA-7 AMB Questionnaire SUSANNA-7 Date SUSANNA - 7 assessed: 06/07/25 Feeling nervous, anxious, or on edge: 0 = Not at all Not being able to stop or control worryin = Not at all Worrying too much about different things: 0 = Not at all Trouble relaxin = Not at all Being so restless that it is hard to sit still: 0 = Not at all Becoming easily annoyed or irritable: 0 = Not at all Feeling afraid as if something awful might happen: 0 = Not at all Total SUSANNA-7 score (0-4 normal; 5-9 mild; 10-14 moderate; 15-21 severe): 0 Source: Developed by Drs. Micheal Tarango, Sophie Renteria, Donis Segal and colleagues, with an educational ashley from [employer]. SUSANNA-7 Assessment Billing SUSANNA-7 Assessment Tool: SUSANNA-7 Assessment 83872 Physical exam (Primary Care) Vital Signs: Last Vital Signs Temp 97.6 F 06/07/25 10:31 Pulse 76 06/07/25 10:31 Resp 13 06/07/25 10:31 BP 136/84 06/07/25 10:58 Pulse Ox 96 06/07/25 10:31 Oxygen Delivery Method Room Air 06/07/25 10:31 BMI result Body Mass Index 37.0 Tobacco/Smoking Status: Tobacco use Status Tobacco use date assessed 06/07/25 06/07/25 10:29 Patient Tobacco Use Status Never used Tobacco 06/07/25 10:29 e-Cigarette/Vaping Use Never Used 06/07/25 10:29 PHQ-9: PHQ-9 Score PHQ-9: Total score 0 06/07/25 12:12 Depression Screening Interpretation: Negative Thrive Assessment: Date of Thrive Assessment Date Thrive assessed 05/03/25 06/07/25 10:29 Office Procedures EKG 64705-[id number], Complete Results Reviewed Results Reviewed: Laboratory 06/07/25 Result Units Range Interpretation Provider Comments White Blood Count 7.9 X10*3/uL (4.8-10.8) Red Blood Count 4.58 X10*6/uL (4.20-5.50) Hemoglobin 13.7 g/dl (12.0-16.0) Hematocrit 40.4 % (37.0-47.0) Mean Corpuscular Volume 88.2 fL (80.0-98.0) Mean Corpuscular Hemoglobin 29.9 pg (27.0-33.0) Mean Corpuscular Hemoglobin Concent 33.9 g/dl (31.0-35.0) Red Cell Distribution Width 12.7 % (11.0-16.0) Platelet Count 329 X10*3/uL (160-400) Mean Platelet Volume 9.3 fL (9.4-12.3) Nucleated RBC Absolute Count (auto) 0.000 X10*3/uL (0.0-0.012) Nucleated Red Blood Cells % (auto) 0.0 /100WBC (0.0-0.2) Sodium Level 135 mmol/L (135-145) Potassium Level 4.0 mmol/L (3.3-5.1) Chloride Level 105 mmol/L (96-108) Carbon Dioxide Level 23 mmol/L (22-29) Anion Gap 11 (12-20) Blood Urea Nitrogen 8 mg/dL (9-16) Creatinine 0.67 mg/dL (0.5-1.4) Estimated Creatinine Clearance Calc Not Reportable Estimat Glomerular Filtration Rate > 60 Random Glucose 97 mg/dL (60-115) Calcium Level 9.5 mg/dL (8.4-10.2) Total Bilirubin 0.6 mg/dL (0.0-1.0) Aspartate Amino Transf (AST/SGOT) 24 U/L (5-31) Alanine Aminotransferase (ALT/SGPT) 19 U/L (0-31) Alkaline Phosphatase 85 U/L (39-117) Total Protein 7.1 g/dL (6.5-8.0) Albumin 4.4 g/dL (3.5-5.0) Coding Level of Care Code Est Pt Level 5 (84182) Complex EM visit Add On G2211 Diagnoses SUSANNA (generalized anxiety disorder) F41.1 Primary hypertension I10 Hypertension type: primary hypertension Obesity (BMI 30-39.9) E66.9 Left ovarian cyst N83.202 Dupuytren's disease of palm of both hands M72.0 RLS (restless legs syndrome) G25.81 Chronic pain syndrome G89.4 Chronic pain type: chronic pain syndrome Moderate persistent asthma without complication J45.40 Asthma complication type: uncomplicated Asthma persistence: persistent DIEGO on CPAP G47.33 Psychophysiological insomnia F51.04 Insomnia type: psychophysiologic Pre-op evaluation Z01.818 CPT Codes EKG - CPT: 14669-[id number], Complete ([id number]) Additional Codes SUSANNA-7 Assessment Billing - SUSANNA-7 Assessment Tool: SUSANNA-7 Assessment 44119 ([id number]) PHQ-9 - 65848 - PHQ-9 Billing: Yes ([id number]) Assessment & Plan Assessment & Plan (1) SUSANNA (generalized anxiety disorder): Code(s): F41.1 - Generalized anxiety disorder Category: Medical (2) HTN (hypertension): Code(s): I10 - Essential (primary) hypertension Category: Medical Qualifiers: Hypertension type: primary hypertension Qualified Code(s): I10 - Essential (primary) hypertension (3) Obesity (BMI 30-39.9): Code(s): E66.9 - Obesity, unspecified Category: Medical (4) Left ovarian cyst: Code(s): N83.202 - Unspecified ovarian cyst, left side Category: Medical (5) Dupuytren's disease of palm of both hands: Code(s): M72.0 - Palmar fascial fibromatosis [Dupuytren] Category: Medical (6) RLS (restless legs syndrome): Code(s): G25.81 - Restless legs syndrome Category: Medical (7) Chronic pain: Code(s): G89.29 - Other chronic pain Category: Medical Qualifiers: Chronic pain type: chronic pain syndrome Qualified Code(s): G89.4 - Chronic pain syndrome (8) Moderate asthma: Code(s): J45.909 - Unspecified asthma, uncomplicated Category: Medical Qualifiers: Asthma complication type: uncomplicated Asthma persistence: persistent Qualified Code(s): J45.40 - Moderate persistent asthma, uncomplicated (9) DIEGO on CPAP: Comment: sleep study 2019 Code(s): G47.33 - Obstructive sleep apnea (adult) (pediatric) Category: Medical (10) Insomnia: Code(s): G47.00 - Insomnia, unspecified Category: Medical Qualifiers: Insomnia type: psychophysiologic Qualified Code(s): F51.04 - Psychophysiologic insomnia (11) Pre-op evaluation: Code(s): Z01.818 - Encounter for other preprocedural examination Plan: Pre-Op Clearance: Patient is medically cleared to proceed with surgery. Plan . Orders: Orders Comprehensive Met. Panel Today Z01.818 - Encounter for other preprocedural examination Complete Blood Count no Diff Today Z01.818 - Encounter for other preprocedural examination Medications: Changed From duloxetine 1 tab daily x 2 weeks then increase to 1 tab bid 20 mg PO DIRECTED 60 caps 1RF To duloxetine 20 mg PO DAILY 90 caps 2RF Refilled ropinirole administer 1-3 hours before bedtime 1 mg PO BEDTIME 90 tabs 2RF Discontinued cefixime Discontinued Reason: Patient Completed Course 400 mg PO DAILY 7 days 7 caps 0RF
[2025-06-07 10:31] VITALS: BP 142/78; PULSE 76; RESP 13; TEMP 36.4; O2SAT 96; BMI 37.0
[2025-06-07 10:58] VITALS: BP 136/84
--- OUTSIDE RECORDS SUMMARY | 2025-06-07 11:15 | XMS_ITS | Encounter Summary ---
Author Organization [facility] Address [address] [place] [phone] Phone Care Team Providers Care Commutator Assembler Name Role Phone Rahat English MD Primary Care Provider + Rahat English MD Primary Care Provider + Encounter Details Date Type Department Care Team (Late st Contact Info) Description 06/15/2019 Ancillary Orders [facility], X-Ray - [address] [address] Ken Rodriguez, LOGAN [address] [place] [id number] Low back pain, unspecified back pain laterality, unspecified chronicity, unspecified whether sciatica present; Neck pain Social History Tobacco Use Types Packs/Day Years Used Date Smoking Tobacco: Never Smokeless Tobacco: Never Alcohol Use Standard Drinks/Week Comments Yes 0 (1 standard drink = 0.6 oz pur e alcohol) rare Comments No Sex and Gender Information Value Date Recorded Sex Assigned at Female 11/08/2017 1:34 PM EST Legal Sex Female 7:49 PM EST Gender Identity Female 11/08/2017 1:34 PM EST Sexual Orientation Straight 11/08/2017 1: 34 PM EST documented as of this encounter Plan of Treatment Not on file documented as of this encounter Results * XR CERVICAL SPINE 4-5 VIEWS (06/15/2019 12:37 PM EDT) Anatomical Region Laterality Modality C-spine Radiographic Bina ging 06/15/2019 3:39 PM EDT Impressions 06/15/2019 3:59 PM EDT 1. Moderate degree of degenerative changes at C6-C7. 2. Minimal retrolisthesis of C4 on C5. 3. Prominent neuroforaminal narrowing on the right at C4-C5 POS - [id number] Narrative 06/15/2019 3:59 PM EDT EXAM: XR CERVICAL SPINE 4-5 VIEWS COMPARISON: None FINDINGS: Minimal retrolisthesis of C4 on C5. Vertebral body heights are maintained. Disc space narrowing and small marginal osteophytes appears to be more prominent at C6-C7, which is obscured by the superimposed structures. Neuroforaminal narrowing is more prominent on the right side at C4-C5. Odontoid process well aligned with lateral masses of C1. Procedure Note Nayana Marie MD - 06/15/2019 EXAM: XR CERVICAL SPINE 4-5 VIEWS COMPARISON: None FINDINGS: Minimal retrolisthesis of C4 on C5. Vertebral body heights are maintained.Disc space narrowing and small marginal osteophytes appears to be moreprominent at C6-C7, which is obscured by the superimposed structures.Neuroforaminal narrowing is more prominent on the right side at C4-C5.Odontoid process well aligned with lateral masses of C1. IMPRESSION: 1. Moderate degree of degenerative changes at C6-C7. 2. Minimal retrolisthesis of C4 on C5. 3. Prominent neuroforaminal narrowing on the right at C4-C5 POS - [id number] Ken Rodriguez DC IMG XR SPINE Final Res ult * XR LUMBOSACRAL SPINE 4 OR MORE VIEWS (06/15/2019 12:36 PM EDT) Anatomical Region Laterality Modality L-spine Radiographic Bina ging 06/15/2019 3:34 PM EDT Impressions 06/15/2019 3:39 PM EDT Degenerative changes, more prominent at L5-S1. POS - [id number] Narrative 06/15/2019 3:39 PM EDT EXAM: XR LUMBOSACRAL SPINE 4 OR MORE VIEWS COMPARISON: None FINDINGS: Transitional lumbosacral vertebrae. Lumbar lordosis is maintained. No significant subluxations. Vertebral heights are maintained. Marked disc space narrowing at L5-S1. Small marginal osteophytes at multiple levels. Symmetric degenerative changes in bilateral sacroiliac joints. Procedure Note Nayana Marie MD - 06/15/2019 EXAM: XR LUMBOSACRAL SPINE 4 OR MORE VIEWS COMPARISON: None FINDINGS: Transitional lumbosacral vertebrae. Lumbar lordosis is maintained. Nosignificant subluxations. Vertebral heights are maintained. Marked discspace narrowing at L5-S1. Small marginal osteophytes at multiple levels.Symmetric degenerative changes in bilateral sacroiliac joints. IMPRESSION: Degenerative changes, more prominent at L5-S1. POS - [id number] Ken Rodriguez DC IMG XR SPINE Final Res ult documented in this encounter Visit Diagnoses Diagnosis Low back pain, unspecified back pain laterality, unspecified chronicity, unspecified whether sciatica present Neck pain Cervicalgia Low back pain, unspecified back pain laterality, unspecified chronicity, unspecified whether sciatica present Neck pain Cervicalgia Low back pain, unspecified back pain laterality, unspecified chronicity, unspecified whether sciatica present Neck pain Cervicalgia documented in this encounter Additional Health Concerns Infection Onset Date Last Indicated Resolved Time CoV-Risk 12/04/2024 12/04/2024 12/15/2024 1:21 AM EST documented as of this encounter Care Teams Commutator Assembler Relationship Specialty Start Date End Date Rahat English MD [address] [place] [phone] PCP - General Internal Medicine 09/17/17 04/14/22 Rahat English MD [address] [place] [phone] PCP - General Internal Medicine 04/15/22 documented as of this encounter Additional Source Comments The information contained in this document represents components of the legal health record. It is not the complete legal health record.[facility]
--- OUTSIDE RECORDS SUMMARY | 2025-06-07 11:15 | XMS_ITS | Encounter Summary ---
Author Organization [facility] Address [address] [place] [address] Phone Care Team Providers Care Production Engine Repairer Name Role Phone Rahat English MD Primary Care Provider + Rahat English MD Primary Care Provider + Encounter Details Date Type Department Care Team (Late st Contact Info) Description 07/19/2020 Ancillary Orders Virtual Department [address] [place] [address] Rahat English MD [address] [place] [address] Breast screening Social History Tobacco Use Types [...] MAMMOGRAM SCREENING WITH TOMOSYNTHESIS WITH CAD (BILATERAL) (09/19/2020 8:49 AM EST) Anatomical Region Laterality Modality Breast Left, Breast Right, Breast Bilateral Bila teral Mammography 09/19/2020 9:27 AM EST Impressions 09/19/2020 9:31 AM EST No findings suspicious for malignancy. In the absence of a worrisome palpable abnormality, annual screening mammography is recommended. BI-RADS CATEGORY: 2 - Benign finding. DENSITY: There are scattered fibroglandular densities. Narrative 09/19/2020 9:31 AM EST COMPARISON: 08/23/2014 through 11/03/2018. Bilateral 3-D tomosynthesis with 2-D reconstructions in the CC and MLO projection of each breast was obtained. Computer-aided detection system also utilized. No new mass, asymmetry, architectural distortion or suspicious calcifications have become apparent on either side. Chronic circumscribed oval density in the lateral aspect of the retroareolar left breast unchanged since at least 2017. Procedure Note Jose Juan Mckeon MD - 09/19/2020 COMPARISON: 08/23/2014 through 11/03/2018. Bilateral 3-D tomosynthesis with 2-D reconstructions in the CC and MLOprojection of each breast was obtained. Computer-aided detection systemalso utilized. No new mass, asymmetry, architectural distortion or suspiciouscalcifications have become apparent on either side. Chronic circumscribed oval density in the lateral aspect of theretroareolar left breast unchanged since at least 2017. IMPRESSION: No findings suspicious for malignancy. In the absence of a worrisomepalpable abnormality, annual screening mammography is recommended. BI-RADS CATEGORY: 2 - Benign finding. DENSITY: There are scattered fibroglandular densities. Rahat English MD IMG MG EXAMS Final Re sult documented in this encounter Visit Diagnoses Diagnosis Breast screening Breast screening, unspecified Breast screening Breast screening, unspecified documented in this encounter Additional Health Concerns Infection Onset Date Last Indicated Resolved Time CoV-Risk 12/04/2024 12/04/2024 12/15/2024 1:21 AM EST documented as of this encounter Care Teams Production Engine Repairer Relationship Specialty Start Date End Date Rahat English MD [address] [address] PCP - General Internal Medicine 09/17/17 04/14/22 Rahat English MD [address] [address] PCP - General Internal Medicine 04/15/22 documented as of this encounter Additional Source Comments The information contained in this document represents components of the legal health record. It is not the complete legal health record.[facility]
--- OUTSIDE RECORDS SUMMARY | 2025-06-07 11:15 | XMS_ITS | Encounter Summary ---
Author Organization [facility] Address [address] [place] [address] [place] [phone] Phone Care Team Providers Care Pulmonology Technician Name Role Phone Rahat English MD Primary Care Provider + Encounter Details Date Type Department Care Team (Late st Contact Info) Description 08/19/2023 Procedure Pass [facility], [address] [address] Social History Tobacco Use Types Packs/Day Years Used Date Smoking Tobacco: Never Smokeless Tobacco: Never Alcohol Use Standard Drinks/Week Comments Yes 0 (1 standard drink = 0.6 oz pur e alcohol) rare Education Answer Date Recorded Are you interested in more education? Not on lu e 02/05/2023 Are you concerned about learning? Not on file 02/05/2023 No 02/05/2023 No 02/05/2023 Digital Access Answer Date Recorded No 03/09/2023 No 03/09/2023 Reliable internet access at home? Not on file 03/09/2023 Device with a working camera? Not on file Comments No Sex and Gender Information Value Date Recorded Sex Assigned at Female 11/08/2017 1:34 PM EST Legal Sex Female 7:49 PM EST Gender Identity Female 11/08/2017 1:34 PM EST Sexual Orientation Straight 11/08/2017 1: 34 PM EST documented as of this encounter Plan of Treatment Not on file documented as of this encounter Visit Diagnoses Not on filedocumented in this encounter Additional Health Concerns Infection Onset Date Last Indicated Resolved Time CoV-Risk 12/04/2024 12/04/2024 12/15/2024 1:21 AM EST documented as of this encounter Care Teams Pulmonology Technician Relationship Specialty Start Date End Date Rahat Enlgish MD [address] [address] PCP - General Internal Medicine 04/15/22 documented as of this encounter Additional Source Comments The information contained in this document represents components of the legal health record. It is not the complete legal health record.[facility]
--- OUTSIDE RECORDS SUMMARY | 2025-06-07 11:15 | XMS_ITS | Encounter Summary ---
Author Organization [facility] Address [address] [place] [address] Phone Care Team Providers Care Telegraph Operator Name Role Phone Rahat English MD Primary Care Provider + Rahat English MD Primary Care Provider + Encounter Details Date Type Department Care Team (Late st Contact Info) Description 02/27/2022 Procedure Pass [facility], [address] [phone] Social History Tobacco Use Types Packs/Day Years [...] documented as of this encounter Care Teams Telegraph Operator Relationship Specialty Start Date End Date Rahat English MD [address] [address] PCP - General Internal Medicine 09/17/17 04/14/22 Rahat English MD [address] [address] PCP - General Internal Medicine 04/15/22 documented as of this encounter Additional Source Comments The information contained in this document represents components of the legal health record. It is not the complete legal health record.[facility]
--- OUTSIDE RECORDS SUMMARY | 2025-06-07 11:15 | XMS_ITS | Encounter Summary ---
Author Organization [facility] Address [address] [place] [address] [place] [address] Phone Care Team Providers Care Marriage Counselor Name Role Phone Rahat English MD Primary Care Provider + Rahat English MD Primary Care Provider + Encounter Details Date Type Department Care Team (Late st Contact Info) Description 09/17/2017 Ancillary Orders [facility] [address] [place] [address] Catherine Tidwell MD [address] [facility], [address] [place] [address] [email or web address] Breast screening Social History [...] There are scattered fibroglandular densities. POS - [id number] Narrative 11/02/2017 10:24 AM EST Standard digital [...] and compared with multiple prior studies, most /02/2016, with utilization of computer-aided detection. The breasts are composed of scattered fibroglandular densities. Thestromal markings are essentially unchanged in overall appearance anddistribution. No dominant spiculated mass, suspicious clusteredmicrocalcifications, or focal zone of pathologic skin thickening orretraction are noted to have arisen in the interim. IMPRESSION: No mammographic evidence of malignancy. BI-RADS CATEGORY: 1 - Negative. DENSITY: There are scattered fibroglandular densities. POS - [id number] Catherine Tidwell MD IMG MG EXAMS Final Result documented in this encounter Visit Diagnoses Diagnosis Breast screening Breast screening, unspecified Breast screening Breast screening, unspecified documented in this encounter Additional Health Concerns Infection Onset Date Last Indicated Resolved Time CoV-Risk 12/04/2024 12/04/2024 12/15/2024 1:21 AM EST documented as of this encounter Care Teams Marriage Counselor Relationship Specialty Start Date End Date Rahat English MD [address] [place] [address] PCP - General Internal Medicine 09/17/17 04/14/22 Rahat English MD [address] [place] [address] [address] [place] [address] PCP - General Internal Medicine 04/15/22 documented as of this encounter Additional Source Comments The information contained in this document represents components of the legal health record. It is not the complete legal health record.[facility]
--- OUTSIDE RECORDS SUMMARY | 2025-06-07 11:15 | XMS_ITS | Encounter Summary ---
Author Organization [facility] Address [address] [place] [address] [place] [address] Phone Care Team Providers Care Clothing Trades Workers Name Role Phone Rahat English MD Primary Care Provider + Encounter Details Date Type Department Care Team (Late st Contact Info) Description 08/19/2023 Procedure Pass [facility], [address] [address] Social History Tobacco Use Types Packs/Day Years [...] documented as of this encounter Care Teams Clothing Trades Workers Relationship Specialty Start Date End Date Rahat English MD [address] [address] PCP - General Internal Medicine 04/15/22 documented as of this encounter Additional Source Comments The information contained in this document represents components of the legal health record. It is not the complete legal health record.[facility]
--- OUTSIDE RECORDS SUMMARY | 2025-06-07 11:15 | XMS_ITS | Encounter Summary ---
Author Organization [facility] Address [address] [place] [address] Phone Care Team Providers Care Yard Jacker Name Role Phone Rahat English MD Primary Care Provider + Encounter Details Date Type Department Care Team (Latest Contact Info) Description 07/10/2023 Transcribe Orders Virtual Department [address] [place] [address] Rahat English MD [address] [place] [phone] Breast screening (Primary Dx) Social History Tobacco Use Types Packs/Day Years [...] documented as of this encounter Visit Diagnoses Diagnosis Breast screening- Primary Breast screening, unspecified documented in this encounter Additional Health Concerns Infection Onset Date Last Indicated Resolved Time CoV-Risk 12/04/2024 12/04/2024 12/15/2024 1:21 AM EST documented as of this encounter Care Teams Yard Jacker Relationship Specialty Start Date End Date Rahat English MD [address] [place] [address] PCP - General Internal Medicine 04/15/22 documented as of this encounter Additional Source Comments The information contained in this document represents components of the legal health record. It is not the complete legal health record.[facility]
--- OUTSIDE RECORDS SUMMARY | 2025-06-07 11:15 | XMS_ITS | Encounter Summary ---
Author Organization [facility] Address [address] [place] [address] Phone Care Team Providers Care Event Marketing Coordinator Name Role Phone Rahat English MD Primary Care Provider + Rahat English MD Primary Care Provider + Encounter Details Date Type Department Care Team (Late st Contact Info) Description 02/27/2022 Procedure Pass [facility], [address] [address] Social History Tobacco Use Types Packs/Day Years [...] documented as of this encounter Care Teams Event Marketing Coordinator Relationship Specialty Start Date End Date Rahat English MD [address] [address] PCP - General Internal Medicine 09/17/17 04/14/22 Rahat English MD [address] [address] PCP - General Internal Medicine 04/15/22 documented as of this encounter Additional Source Comments The information contained in this document represents components of the legal health record. It is not the complete legal health record.[facility]
--- OUTSIDE RECORDS SUMMARY | 2025-06-07 11:15 | XMS_ITS | Encounter Summary ---
Author Organization [facility] Address [address] [place] [address] Phone Care Team Providers Care Store Stock Associate Name Role Phone Rahat English MD Primary Care Provider + Rahat English MD Primary Care Provider + Encounter Details Date Type Department Care Team (Late st Contact Info) Description 07/19/2020 Procedure Pass [facility], [address] [address] Social History Tobacco Use Types Packs/Day Years [...] documented as of this encounter Care Teams Store Stock Associate Relationship Specialty Start Date End Date Rahat English MD [address] [address] PCP - General Internal Medicine 09/17/17 04/14/22 Rahat English MD [address] [address] PCP - General Internal Medicine 04/15/22 documented as of this encounter Additional Source Comments The information contained in this document represents components of the legal health record. It is not the complete legal health record.[facility]
--- OUTSIDE RECORDS SUMMARY | 2025-06-07 11:16 | XMS_ITS | Encounter Summary ---
Author Organization [facility] Address [address] [place] [address] Phone Care Team Providers Care Pantograph Transferrer Name Role Phone Rahat English MD Primary Care Provider + Rahat English MD Primary Care Provider + Encounter Details Date Type Department Care Team (Late st Contact Info) Description 09/30/2021 Procedure Pass [facility], [address] [address] Social History Tobacco Use Types Packs/Day Years [...] documented as of this encounter Care Teams Pantograph Transferrer Relationship Specialty Start Date End Date Rahat English MD [address] [address] PCP - General Internal Medicine 09/17/17 04/14/22 Rahat English MD [address] [address] PCP - General Internal Medicine 04/15/22 documented as of this encounter Additional Source Comments The information contained in this document represents components of the legal health record. It is not the complete legal health record.[facility]
--- OUTSIDE RECORDS SUMMARY | 2025-06-07 11:16 | XMS_ITS | Encounter Summary ---
Author Organization [facility] Address [address] [place] [address] Phone Care Team Providers Care Steam Press Operator Name Role Phone Rahat English MD Primary Care Provider + Encounter Details Date Type Department Care Team (Latest Contact Info) Description 07/31/2022 Transcribe Orders Virtual Department [address] [place] [address] Rahat English MD [address] [place] [address] Breast screening (Primary Dx) Social History Tobacco [...] documented as of this encounter Care Teams Steam Press Operator Relationship Specialty Start Date End Date Rahat English MD [address] [place] [address] PCP - General Internal Medicine 04/15/22 documented as of this encounter Additional Source Comments The information contained in this document represents components of the legal health record. It is not the complete legal health record.[facility]
--- OUTSIDE RECORDS SUMMARY | 2025-06-07 11:16 | XMS_ITS | Encounter Summary ---
Author Organization [facility] Address [address] [place] [address] [place] [address] Phone Care Team Providers Care Master In Chancery Name Role Phone Rahat English MD Primary Care Provider + Encounter Details Date Type Department Care Team (Late st Contact Info) Description 07/31/2022 Procedure Pass [facility], [address] [address] Social History Tobacco Use Types Packs/Day Years [...] documented as of this encounter Care Teams Master In Chancery Relationship Specialty Start Date End Date Rahat English MD [address] [place] [address] PCP - General Internal Medicine 04/15/22 documented as of this encounter Additional Source Comments The information contained in this document represents components of the legal health record. It is not the complete legal health record.[facility]
--- OUTSIDE RECORDS SUMMARY | 2025-06-07 11:16 | XMS_ITS | Encounter Summary ---
Author Organization [facility] Address [address] [place] [address] Phone Care Team Providers Care Verification Engineer Name Role Phone Rahat English MD Primary Care Provider + Rahat English MD Primary Care Provider + Encounter Details Date Type Department Care Team (Late st Contact Info) Description 08/12/2018 Ancillary Orders Virtual Department 30 [place] [address] Rahat English MD [address] [place] [phone] Breast screening Social History Tobacco Use Types [...] MAMMOGRAM SCREENING WITH TOMOSYNTHESIS WITH CAD (BILATERAL) (11/03/2018 8:37 AM EST) Anatomical Region Laterality Modality Breast Left, Breast Right, Breast Bilateral Bila teral Mammography 11/03/2018 11:0 6 AM EST Impressions 11/03/2018 11:07 AM EST No mammographic evidence of malignancy. RECOMMENDED FOLLOWUP: Routine screening mammography is recommended, as clinically appropriate. The results will be sent to the patient. BI-RADS CATEGORY: 1 - Negative. BREAST DENSITY: There are scattered fibroglandular densities. POS - [id number] Narrative 11/03/2018 11:07 AM EST BI MAMMOGRAM SCREENING WITH TOMOSYNTHESIS WITH CAD (BILATERAL) HISTORY: Screening. COMPARISON: Prior studies dating back to 2011, most recently 11/02/2017. TECHNIQUE: Digital breast tomosynthesis was performed in CC and MLO projections. Reconstructed 2-D C-views generated from the tomosynthesis images. Images interpreted in conjunction with R-2 Image Sole Leveling Machine Operator computer-aided detection (CAD). FINDINGS: BREAST DENSITY: There are scattered fibroglandular densities. There are no suspicious masses, suspicious areas of architectural distortion or suspicious clusters of microcalcifications. Procedure Note Heena Mac MD - 11/03/2018 BI MAMMOGRAM SCREENING WITH TOMOSYNTHESIS WITH CAD (BILATERAL) HISTORY: Screening. COMPARISON: Prior studies dating back to 2011, most recently 11/02/2017. TECHNIQUE: Digital breast tomosynthesis was performed in CC and MLOprojections. Reconstructed 2-D C-views generated from the tomosynthesisimages. Images interpreted in conjunction with R-2 Image Checkercomputer-aided detection (CAD). FINDINGS: BREAST DENSITY: There are scattered fibroglandular densities. There are no suspicious masses, suspicious areas of architecturaldistortion or suspicious clusters of microcalcifications. IMPRESSION: No mammographic evidence of malignancy. RECOMMENDED FOLLOWUP: Routine screening mammography is recommended, asclinically appropriate. The results will be sent to the patient. BI-RADS CATEGORY: 1 - Negative. BREAST DENSITY: There are scattered fibroglandular densities. POS - [id number] Rahat English MD IMG MG EXAMS Final Re sult documented in this encounter Visit Diagnoses Diagnosis Breast screening Breast screening, unspecified Breast screening Breast screening, unspecified documented in this encounter Additional Health Concerns Infection Onset Date Last Indicated Resolved Time CoV-Risk 12/04/2024 12/04/2024 12/15/2024 1:21 AM EST documented as of this encounter Care Teams Verification Engineer Relationship Specialty Start Date End Date Rahat English MD [address] [address] PCP - General Internal Medicine 09/17/17 04/14/22 Rahat English MD [address] [address] PCP - General Internal Medicine 04/15/22 documented as of this encounter Additional Source Comments The information contained in this document represents components of the legal health record. It is not the complete legal health record.[facility]
--- OUTSIDE RECORDS SUMMARY | 2025-06-07 11:16 | XMS_ITS | Encounter Summary ---
Author Organization [facility] Address [address] [place] [address] [place] [address] Phone Care Team Providers Care Type Disk Quality Control Supervisor Name Role Phone Rahat English MD Primary Care Provider + Encounter Details Date Type Department Care Team (Late st Contact Info) Description 07/31/2022 Procedure Pass [address] [address] Social History Tobacco Use Types Packs/Day Years [...] documented as of this encounter Care Teams Type Disk Quality Control Supervisor Relationship Specialty Start Date End Date Rahat English MD [address] [place] [address] PCP - General Internal Medicine 04/15/22 documented as of this encounter Additional Source Comments The information contained in this document represents components of the legal health record. It is not the complete legal health record.[facility]
--- OUTSIDE RECORDS SUMMARY | 2025-06-07 11:16 | XMS_ITS | Encounter Summary ---
Author Organization [facility] Address [address] [place] [address] Phone Care Team Providers Care Outsole Beveler Name Role Phone Rahat English MD Primary Care Provider + Rahat English MD Primary Care Provider + Encounter Details Date Type Department Care Team (Late st Contact Info) Description 05/29/2021 Procedure Pass [facility], [address] [phone] Social History Tobacco Use Types Packs/Day Years [...] documented as of this encounter Care Teams Outsole Beveler Relationship Specialty Start Date End Date Rahat English MD [address] [address] PCP - General Internal Medicine 09/17/17 04/14/22 Rahat English MD [address] [address] PCP - General Internal Medicine 04/15/22 documented as of this encounter Additional Source Comments The information contained in this document represents components of the legal health record. It is not the complete legal health record.[facility]
--- OUTSIDE RECORDS SUMMARY | 2025-06-07 11:16 | XMS_ITS | Clinical Summary ---
Author Organization [facility] Address [address] [place] [phone] Phone Care Team Providers Care Log Turner Name Role Phone Rahat English MD Primary Care Provider + Allergies Active Allergy Reactions Criticality Noted Date Comments Dog Dander 05/01/2023 Levonorgestrel-Ethinyl Estrad 2022 Mold Extracts 07/03/2021 Medications amLODIPine (NORVASC) 10 MG tablet 5 mg. Active omega 7-wzk-ial-fish oil (FISH OIL) 1,000 mg (120 mg-180 mg) Cap Activ e magnesium oxide 400 mg Cap Active cholecalciferol (VIT D3) 400 unit/mL oral drops Active ascorbic acid, vitamin C, (VITAMIN C) 500 MG tablet Take 500 mg by mouth daily. Active loratadine (CLARITIN) 5 mg/5 mL syrup Take 5 mg by mouth daily. Active budesonide-form oterol (SYMBICORT) 80-4.5 mcg/actuation inhaler Inhale 2 puffs into the lungs 2 (two) times a day. Active chlorthalidone (HYGROTON) 25 MG tablet Take 25 mg by mouth daily. Active atorvastatin (LIPITOR) 20 MG tablet Take 20 mg by mouth daily. Active rOPINIRole (REQUIP) 0.25 MG tablet Take 0.25 mg by mouth 3 (three) times a day. Active albuterol (ACCUNEB) 0.63 mg/3 mL nebulizer solution Take 1 ampule by nebulization every 6 (six) hours as needed for wheezing. Active spironolactone (ALDACTONE) 25 MG tablet Take 25 mg by mouth daily. Active nitrofurantoin (MACROBID) 100 MG capsule Take 1 capsule (100 mg total) by mouth 2 (two) times a day. 10 capsule 2 Active Additional Information Patient not taking.Reported on 05/01/2023 fluticasone propionate (FLONASE ALLERGY RELIEF) 50 mcg/actuation nasal spray by Nasal route. 2 Active fluticasone propionate (FLOVENT HFA) 44 mcg/actuation inhaler Inhale into the lungs. 0 Active omeprazole (PRILOSEC) 20 MG capsule 3 Active valACYclovir (VALTREX) 1000 MG tablet Take 1 g by mouth. 1 Active methylPREDNISol one (MEDROL DOSEPACK) 4 mg tablet follow package directions 21 tablet 3 Active albuterol 90 mcg/actuation inhaler Inhale 2 puffs into the lungs every 6 (six) hours as needed for wheezing. 18 g 5 Active albuterol 2.5 mg /3 mL (0.083 %) nebulizer solution Take 3 mL (2.5 mg total) by nebulization every 6 (six) hours as needed for shortness of breath/dyspnea. 3 mL 5 Active methylPREDNISol one (MEDROL DOSEPACK) 4 mg tablet follow package directions 21 tablet 5 Active Active Problems Problem Noted Date Diagnosed Date Hypertension 05/01/2023 05/01/2023 Hypercholesterolemia 05/01/2023 05/01/2023 Herpes labialis 05/01/2023 05/01/2023 Class 2 obesity 05/01/2023 05/01/2023 Asthma 05/01/2023 05/01/2023 Allergic rhinitis 05/01/2023 05/01/2023 Obstructive sleep apnea syndrome 05/01/2023 05/01/2023 Prediabetes 05/01/2023 05/01/2023 Restless legs syndrome 05/01/2023 3 Subclinical hypothyroidism 05/01/202305/01 Vasovagal syncope 05/01/2023 05/01/2023 Cyst of left ovary 07/03/2021 Overview (07/03/2021): 8.[address] [place] May 2021 (abd pain, watery diarrhea x 6 months) Declines surgery at this time Assessment & Plan (07/03/2021 3:27 PM EDT): Discussed pros and cons of surgery now vs delay; if pos tumor markers, refer to equipment analyst onc U/s in one month advised to assess for growth Immunizations Immunization Administration Dates Next Due COVID-19 (Pre-08/03) Pfizer Vaccine, mRNA, PF 01/26/2021 INFLUENZA, SPLIT VIRUS, TRIV ALENT W/ PRESERVATIVE IM 07/22/2022,09/01/2010 Influenza Quadrivalent Preservative Free IM 06/13,06/27/2020,07/20/2018 Influenza Trivalent Adjuvant ed Preservative free IM 07/01/2016 Pneumococcal conjugate PCV13 11/28/2021 Zoster live 06/24/2017 Zoster recombinant 11/19/2020,07/16/2020, 020 Family History Medical History Relation Comments Breast cancer Mother Breast cancer Paternal Aunt 1 Breast cancer Paternal Aunt 2 Relation Status Comments Mother Paternal Aunt 1 Paternal Aunt 2 Social History Tobacco Use Types Packs/Day Years [...] Orientation Straight 11/08/2017 1: 34 PM EST Last Filed Vital Signs Vital Sign Reading Time Taken Comments Blood Pressure 147/76 12/04/2024 12:09 PM EST Pulse 83 12/04/2024 12:09 PM EST Temperature 36.6 C (97.8 F) 12/04/2024 12:09 PM EST Respiratory Rate 14 12/04/2024 12:09 PM EST Oxygen Saturation 99% 12/04/2024 12:09 PM EST Inhaled Oxygen Concentration - - Weight 108.9 kg (240 lb) 12/04/2024 12:09 PM EST Height 170.2 cm (5' 7 ) 12/04/2024 12:09 PM EST Body Mass Index 37.59 12/04/2024 12:09 PM EST Plan of Treatment Health Maintenance Due Date Last Done Comments Adult Td,Tdap Booster 1956 LIPID PANEL 1956 DEPRESSION SCREENING 1968 HEPATITIS C SCREENING 1974 COLOGUARD 2001 COLONOSCOPY 2001 COLORECTAL CANCER SCREENING 2001 FIT TEST 2001 FOBT 2001 SIGMOIDOSCOPY 2001 VIRTUAL COLONOSCOPY 2001 RSV VACCINE (1 - Risk 60-74 years 1-dose series) 2016 OSTEOPOROSIS SCREENING INITIAL (ONE-TIME) 2021 PNEUMOCOCCAL VACCINES (50+ years) (2 of 2 - PPSV23) 01/23/2022 11/28/2021 POTASSIUM LEVEL 04/21/2024 04/21/2023 COVID-19 VACCINE ( season) 2024 05/14/2022, 11/30/2021, 02/16/2021, Additional history exists BLOOD PRESSURE 06/03/2025 12/04/2024 MAMMOGRAM 10/22/2025 10/22/2023, 01/2023, 09/30/2021, Additional history exists SCREENING FOR DIABETES 04/21/2026 04/21/2023 ZOSTER VACCINES Completed 11/19/2020, 02/2020, 07/16/2020, Additional history exists SMOKING STATUS SCREENING (Once After 26 Yrs) Completed 12/04/2024 HEPATITIS A VACCINES Aged Out No long er eligible based on patient's age to complete this topic HIB VACCINES Aged Out No longer eligi ble based on patient's age to complete this topic MENINGOCOCCAL VACCINES (ACWY) Aged Out No longer eligible based on patient's age to complete this topic MENINGOCOCCAL VACCINES (B) Aged Out N o longer eligible based on patient's age to complete this topic Medical Devices Not on file Procedures Procedure Name Priority Date/Time Associated Diagnosis Comments BI MAMMOGRAM DIAGNOSTIC WITH TOMOSYNTHESIS WITH CAD (BILATERAL) Routine 10/22/2023 8:26 AM EST Abnormal mammogram BASIC METABOLIC PANEL STAT 04/21/2023 6:05 PM EDT from Last 3 Months or Most Recently Relevant to Health Maintenance Results * BI MAMMOGRAM DIAGNOSTIC WITH TOMOSYNTHESIS WITH CAD (BILATERAL) (10/22/2023 8:26 AM EST) Anatomical Region Laterality Modality Breast Left, Breast Right, Breast Bilateral Bila teral Mammography 10/22/2023 8:59 AM EST Impressions 10/22/2023 9:30 AM EST Stable or slightly smaller small mass in the anterior 7:00 position of the left breast. There has been no progression since 10/23/2021 this can be considered benign. No other imaging findings suspicious for malignancy. Bilateral screening mammography in 12 months is recommended. Results and recommendation conveyed to the patient before leaving the breast center. BI-RADS CATEGORY: 2 - Benign finding. DENSITY: There are scattered fibroglandular densities. Narrative 10/22/2023 9:30 AM EST HISTORY: Follow-up sub-centimeter mass 6:30 position anterior aspect of left breast. EXAM: Bilateral diagnostic mammogram with tomosynthesis and CAD, left breast ultrasound. COMPARISON: Compared with prior mammograms as far back as 11/02/2017 and as recent as 10/15/2022. Left breast ultrasound 10/15/2022, 04/15/2022 and 11/02/2011 reviewed. FINDINGS: No suspicious masses or evidence of architectural distortion on mammography. No suspicious microcalcifications. Loop recorder remains in place in the posterior medial left breast. Directed ultrasound scanning performed of the 6 and 7:00 positions of the left breast. The same hypoechoic mass in the 6-7:00 position 1 cm deep to the nipple persists. It is stable once again in size and configuration. It is possible the mass is slightly smaller as maximal dimension on today's ultrasound is 3 mm compared with 5 mm on 10/15/2022. No other sonographic changes. Procedure Note Ellis Smith MD - 10/22/2023 HISTORY: Follow-up sub-centimeter mass 6:30 position anterior aspect ofleft breast. EXAM: Bilateral diagnostic mammogram with tomosynthesis and CAD, leftbreast ultrasound. COMPARISON: Compared with prior mammograms as far back as 11/02/2017 andas recent as 10/15/2022. Left breast ultrasound 10/15/2022, 04/15/2022 and11/02/2011 reviewed. FINDINGS: No suspicious masses or evidence of architectural distortion onmammography. No suspicious microcalcifications. Loop recorder remains inplace in the posterior medial left breast. Directed ultrasound scanning performed of the 6 and 7:00 positions of theleft breast. The same hypoechoic mass in the 6-7:00 position 1 cm deep tothe nipple persists. It is stable once again in size and configuration. Itis possible the mass is slightly smaller as maximal dimension on today'sultrasound is 3 mm compared with 5 mm on 10/15/2022. No other sonographicchanges. IMPRESSION: Stable or slightly smaller small mass in the anterior 7:00 position of theleft breast. There has been no progression since 10/23/2021 this can beconsidered benign. No other imaging findings suspicious for malignancy.Bilateral screening mammography in 12 months is recommended. Results and recommendation conveyed to the patient before [facility]. BI-RADS CATEGORY: 2 - Benign finding. DENSITY: There are scattered fibroglandular densities. us Marilynn Martinez MD IMG MG EXAMS Final Result * Basic metabolic panel (04/21/2023 6:05 PM EDT) SODIUM 138 133 - 146 mmol/L [facility] CHLORIDE 104 96 - 108 mmol/L [facility] POTASSIUM 4.1 3.3 - 5.1 mmol/L [facility] CO2 24 21 - 35 mmol/L [facility] BUN 9 6 - 19 mg/dL [facility] CREATININE 0.80 0.5 - 1.5 mg/dL [facility] GLUCOSE 89 70 - 99 mg/dL [facility] CALCIUM 9.8 8.4 - 10.3 mg/dL [facility] EGFR 81 >59 mL/min/1.7 3m2 [facility] Comment:Estimated glomerular filtration rate calculated using the CKD-EPI refit equation. ANION GAP 14 10 - 20 mmol/L [facility] Blood 04/21/2023 6:05 PM EDT 04/21/2023 6:24 PM EDT us Marilyn Bernal DO LAB BLOOD ORDERABLES Final R esult Performing Organization Address City/State/[facility] Co de Phone Number [address] [phone] from Last 3 Months or Most Recently Relevant to Health Maintenance Insurance MEDICARE A [facility] MED[facility]ARE A [facility] MEDICARE A MEDICARE A MEDICARE A [facility] MEDICARE A [facility] PPO MEDICARE A [facility]1983 PPO MEDICARE A MEDICARE A [employer] O Care Teams Log Turner Relationship Specialty Start Date End Date Rahat English MD [address] [place] [id number] PCP - General Internal Medicine 04/15/22 Additional Source Comments The information contained in this document represents components of the legal health record. It is not the complete legal health record.[facility]
--- OUTSIDE RECORDS SUMMARY | 2025-06-07 11:16 | XMS_ITS | Encounter Summary ---
Author Organization [facility] Address [address] [place] [phone] Phone Care Team Providers Care Dairy Nutrition Consultant Name Role Phone Rahat English MD Primary Care Provider + Rahat English MD Primary Care Provider + Encounter Details Date Type Department Care Team (Late st Contact Info) Description 05/29/2021 Ancillary Orders Virtual Department [address] [place] [address] Rahat English MD [address] [place] [phone] Breast screening Social History Tobacco Use Types [...] documented as of this encounter Results * (ABNORMAL) BI MAMMOGRAM SCREENING WITH TOMOSYNTHESIS WITH CAD (BILATERAL) (09/30/2021 8:20 AM EST) Anatomical Region Laterality Modality Breast Left, Breast Right, Breast Bilateral Bila teral Mammography 09/30/2021 8:26 AM EST Impressions 09/30/2021 12:29 PM EST Recommend recalling the patient for a left breast asymmetry. Radiology department will attempt to recall the patient. Recall views: Spot compression left MLO. Left ML view. Ultrasound if necessary. BI-RADS CATEGORY: 0 - Incomplete. Need additional imaging evaluation. DENSITY: There are scattered fibroglandular densities. LEFT RECOMMENDATION DUE DATE: 1 Month Left Additional Imaging RIGHT RECOMMENDATION DUE DATE: 12 Months Right Mammography Screening Narrative 09/30/2021 12:29 PM EST 65-year-old female with no current breast symptoms. Comparison made to previous on 09/19/2020 and as far back as 08/23/2014. Interpretation made in conjunction with computer-aided detection and tomosynthesis. There are scattered areas of fibroglandular density. Chronic small right upper outer lymph node. Increase in prominence of the nodular asymmetry in the inferior left breast on the MLO view. There are no suspicious masses, areas of architectural distortion, or suspicious clusters of microcalcifications. Procedure Note Ollie Brown MD - 09/30/2021 65-year-old female with no current breast symptoms. Comparison made toprevious on 09/19/2020 and as far back as 08/23/2014. Interpretation madein conjunction with computer-aided detection and tomosynthesis. There are scattered areas of fibroglandular density. Chronic small rightupper outer lymph node. Increase in prominence of the nodular asymmetry inthe inferior left breast on the MLO view. There are no suspicious masses, areas of architectural distortion, orsuspicious clusters of microcalcifications. IMPRESSION: Recommend recalling the patient for a left breast asymmetry. Radiologydepartment will attempt to recall the patient. Recall views: Spot compression left MLO. Left ML view. Ultrasound ifnecessary. BI-RADS CATEGORY: 0 - Incomplete. Need additional imaging evaluation. DENSITY: There are scattered fibroglandular densities. LEFT RECOMMENDATION DUE DATE: 1 Month Left Additional Imaging RIGHT RECOMMENDATION DUE DATE: 12 Months Right Mammography Screening us Rahat English MD IMG MG EXAMS Final Re sult documented in this encounter Visit Diagnoses Diagnosis Breast screening Breast screening, unspecified Breast screening Breast screening, unspecified documented in this encounter Additional Health Concerns Infection Onset Date Last Indicated Resolved Time CoV-Risk 12/04/2024 12/04/2024 12/15/2024 1:21 AM EST documented as of this encounter Care Teams Dairy Nutrition Consultant Relationship Specialty Start Date End Date Rahat English MD [address] [address] PCP - General Internal Medicine 09/17/17 04/14/22 Rahat English MD [address] [address] PCP - General Internal Medicine 04/15/22 documented as of this encounter Additional Source Comments The information contained in this document represents components of the legal health record. It is not the complete legal health record.[facility]
== END 2025-06-07 11:19 | disposition home or self-care (01) ==
LOC: HO.HMCFM 10:25
PROVIDERS: PCP Nurse Practitioner Family; Visit Provider Nurse Practitioner Family
DX: F41.1 Generalized anxiety disorder (principal); I10 Essential (primary) hypertension; E66.9 Obesity, unspecified; Z68.37 Body mass index [BMI] 37.0-37.9, adult; N83.202 Unspecified ovarian cyst, left side; M72.0 Palmar fascial fibromatosis [Dupuytren]; G25.81 Restless legs syndrome; G89.4 Chronic pain syndrome; J45.40 Moderate persistent asthma, uncomplicated; G47.33 Obstructive sleep apnea (adult) (pediatric); F51.04 Psychophysiologic insomnia; Z01.818 Encounter for other preprocedural examination

== ENCOUNTER 2025-06-07 10:24 | Outpatient (REF) | payer OTHER, SELFPAY ==
[2025-06-07 14:34] LABS: Hematocrit 40.4 % (37.0-47.0); Hemoglobin 13.7 g/dl (12.0-16.0); Mean Corpuscular HGB Conc 33.9 g/dl (31.0-35.0); Mean Corpuscular Hemoglobin 29.9 pg (27.0-33.0); Mean Corpuscular Volume 88.2 fL (80.0-98.0); NRBC Abs Auto 0.000 X10*3/uL (0.0-0.012); NRBC Pct Auto 0.0 /100WBC (0.0-0.2); Platelet Count 329 X10*3/uL (160-400); Red Blood Count 4.58 X10*6/uL (4.20-5.50); White Blood Count 7.9 X10*3/uL (4.8-10.8)
[2025-06-07 15:15] LABS: Alanine Aminotransferase 19 U/L (0-31); Albumin Level 4.4 g/dL (3.5-5.0); Alkaline Phosphatase 85 U/L (39-117); Anion Gap 11 (12-20); Aspartate Amino Transferase 24 U/L (5-31); Blood Urea Nitrogen 8 mg/dL (9-16); Calcium 9.5 mg/dL (8.4-10.2); Carbon Dioxide 23 mmol/L (22-29); Chloride 105 mmol/L (96-108); Estimated Glomerular Filt Rate > 60; Potassium 4.0 mmol/L (3.3-5.1); Sodium 135 mmol/L (135-145); Total Protein 7.1 g/dL (6.5-8.0)
== END 2025-06-07 10:25 | disposition home or self-care (01) ==
LOC: HO.WFDLDS 10:24
PROVIDERS: PCP Nurse Practitioner Family; Visit Provider Nurse Practitioner Family
DX: Z01.818 Encounter for other preprocedural examination (principal); J45.40 Moderate persistent asthma, uncomplicated; E66.9 Obesity, unspecified; F41.1 Generalized anxiety disorder; I10 Essential (primary) hypertension; M72.0 Palmar fascial fibromatosis [Dupuytren]; G25.81 Restless legs syndrome; N83.202 Unspecified ovarian cyst, left side; G89.4 Chronic pain syndrome; F51.04 Psychophysiologic insomnia; G47.33 Obstructive sleep apnea (adult) (pediatric); Z68.37 Body mass index [BMI] 37.0-37.9, adult
CPT/HCPCS: 36415; 80053; 85027; 93005; 96127

== ENCOUNTER 2025-07-19 13:14 | Outpatient (REF) | payer OTHER, SELFPAY ==
[2025-07-19 18:26] LABS: MANUAL DIFF FLAG NO
[2025-07-19 18:35] LABS: Hematocrit 40.1 % (37.0-47.0); Hemoglobin 13.4 g/dl (12.0-16.0); Imm Gran Abs Auto 0.05 X10*3/uL (0.00-0.03); Imm Gran Pct Auto 0.7 % (0.0-0.4); Lymphocytes Absolute Auto 1.5 X10*3/uL (1.2-4.9); Mean Corpuscular HGB Conc 33.4 g/dl (31.0-35.0); Mean Corpuscular Hemoglobin 29.8 pg (27.0-33.0); Mean Corpuscular Volume 89.3 fL (80.0-98.0); NRBC Abs Auto 0.000 X10*3/uL (0.0-0.012); NRBC Pct Auto 0.0 /100WBC (0.0-0.2); Platelet Count 287 X10*3/uL (160-400); Red Blood Count 4.49 X10*6/uL (4.20-5.50); White Blood Count 6.7 X10*3/uL (4.8-10.8)
[2025-07-22 14:13] LABS: Class Alternaria alternata 0; Class Aspergillus fumigatus 0; Class Bermuda Grass 0/1; Class Birch 2; Class Cat Dander 0; Class Cladosporium herbarum 0; Class Cockroach 0/1; Class Common Ragweed 2; Class Cottonwood 0; Class Derm. pterony 0; Class Dermatophagoides farinae 0; Class Dog Dander 0; Class Elm 0; Class Maple Box Elder 0; Class Mountain Cedar 0; Class Mouse Urine Protein 0; Class Mugwort 2; Class Oak 0/1; Class Penicillium crysogenum 0; Class Rough Pigweed 0; Class Sheep Sorrel 0; Class Sycamore 0; Class Timothy Grass 2; Class Walnut Tree 0; Class White Ash 0; Class White Mulberry 0; D002 - IgE D farinae <0.10 kU/L; E001 - IgE Cat Dander <0.10 kU/L; E005 - IgE Dog Dander <0.10 kU/L; G006 - IgE Timothy Grass 0.86 kU/L; I006-IgE Cockroach, German 0.12 kU/L; M002 - IgE Cladosporium herbar <0.10 kU/L; M003 - IgE Aspergillus fumigat <0.10 kU/L; M006 - IgE Alternaria alternat <0.10 kU/L; T001 IgE Maple/Box Elder <0.10 kU/L; T006 - IgE Cedar, Mountain <0.10 kU/L; T007 - IgE Oak, White 0.16 kU/L; T008 IgE Elm, American <0.10 kU/L; T010 - IgE Walnut <0.10 kU/L; T011 - IgE Maple Leaf Sycamore <0.10 kU/L; T014 - IgE Cottonwood <0.10 kU/L; T015 - IgE Ash, White <0.10 kU/L; T070 - IgE White Mulberry <0.10 kU/L; W001 - IgE Ragweed, Short 0.74 kU/L; W006 - IgE Mugwort 0.96 kU/L; W014 IgE Pigweed, Common <0.10 kU/L; W018 IgE Sheep Sorrel <0.10 kU/L
== END 2025-07-19 13:15 | disposition home or self-care (01) ==
LOC: HO.WFDLDS 13:14
PROVIDERS: PCP Nurse Practitioner Family; Referring Provider Nurse Practitioner Family; Visit Provider Nurse Practitioner Family
DX: J45.909 Unspecified asthma, uncomplicated (principal); G47.33 Obstructive sleep apnea (adult) (pediatric); Z91.09 Other allergy status, other than to drugs and biological substances; Z79.899 Other long term (current) drug therapy; Z99.89 Dependence on other enabling machines and devices
CPT/HCPCS: 36415; 82785; 85025; 86003

== ENCOUNTER 2025-07-19 13:14 | Outpatient (AMB) | payer OTHER, SELFPAY ==
[2025-07-19 13:22] VITALS: BP 132/80; PULSE 76; O2SAT 97; BMI 26.5
--- NOTE | 2025-07-19 13:22 | MHC.OFFVIS ---
Vital Signs 07/19/25 13:22 Height 6 ft 7 in Weight 235 lb 8 oz BMI 26.5 BP 132/80 Blood Pressure Location Rt brachial Position Sitting Pulse 76 Pulse Source Pulse Oximeter Pulse Oximetry (%) 97 Oxygen Delivery Method Room Air Intake Visit Reasons: Asthma, DIEGO Allergies No Known Allergies Allergy (Verified 07/19/25 13:27) HPI HPI Asthma, DIEGO: Details: [place] is a pleasant 69 year old female, never smoker, with underlying asthma, DIEGO on CPAP, HTN and HLD. She was referred by PCP for pulmonary evaluation. She reports asthma was diagnosed in adulthood, and the patient has never been hospitalized or intubated due to asthma exacerbations. She uses Symbicort, taking two puffs in the morning and two at night, which she finds effective. The patient reports seasonal exacerbations from July to January, with increased frequency of steroid use last year. She attributes some exacerbations to past wood-burning in the home and has a history of requiring steroids three times last year. The patient has a history of allergic rhinitis, confirmed by allergy testing 25 years ago, showing allergies to dust, mold, and mildew. She previously received allergy shots but discontinued them during the COVID-19 pandemic. She reports prior CXR performed at [facility] with no significant findings, no records available today. Denies pertinent family history. 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 The patient has a history of moderate sleep apnea AHI 28.5 HST, diagnosed in 2019, and uses a CPAP pressure setting 8cm H20, machine regularly. She reports improved sleep quality with the CPAP machine, although she still experiences some awakenings. DME is Regional. [facility] Surgical History (Updated 05/03/25 @ 15:05 by Filomena Fay, [facility]) History of colonoscopy (~2018) History of carpal tunnel release of both wrists Social History Household Members: Spouse Both parents involved: No Caregiver staying overnight: No Housing: House Are you a primary patient care representative to a significant other at home: No Do you presently have visiting nurse or other home services: No 75 years or older and lives alone: No Alcohol intake: current Alcohol intake frequency: a few times a month Patient Tobacco Use Status: Never used Tobacco e-Cigarette/Vaping Use: Never Used Second Hand Smoke Exposure: No service: No Current occupational status: retired Cognitive needs: No Hearing needs: No Vision needs: Yes (wear glasses) Review of Systems Const Denies chills, Denies excessive sweating, Denies fever(s), Denies headache(s) and Denies night sweats Eyes Denies dry eyes, Denies irritation and Denies itchy eyes ENT Reports Normal hearing present, Denies headache(s), Denies nasal congestion, Denies nasal discharge, Denies post nasal drip and Denies sore throat Card Denies chest pain, Denies chest pain at rest, Denies chest pain with activity, Denies claudication, Denies leg edema, Denies dyspnea, Denies dyspnea on exertion, Denies orthopnea and Denies paroxysmal nocturnal dyspnea Resp Denies chest congestion, Denies cough, Denies excessive phlegm production, Denies pain on inspiration, Denies pain with cough, Denies dyspnea, Denies dyspnea on exertion, Denies stridor and Denies wheezing Musc Denies myalgias Neuro Reports Normal hearing present and Denies headache(s) Endo Denies excessive sweating Ten/Lymph Denies lymphadenopathy Aller/Immun Denies itchy eyes, Denies seasonal rhinorrhea and Denies wheezing Physical Exam Vital Signs: Last Vital Signs Pulse 76 07/19/25 13:22 BP 132/80 07/19/25 13:22 Pulse Ox 97 07/19/25 13:22 Oxygen Delivery Method Room Air 07/19/25 13:22 BMI result Body Mass Index 26.5 Const General: cooperative, healthy appearing, comfortable, no acute distress, well developed and alert Nutritional Appearance: obese Orientation/consciousness: patient oriented x3 Limitations: no limitations HEENT Head: Yes normal to inspection, Yes normocephalic and Yes atraumatic Ears: hearing grossly normal bilaterally and external ears normal Eyes General: appearance normal, both eyes and all related structures Eyelids: Yes eyelids normal Sclerae: sclerae normal EOM: EOMs intact bilaterally Neck Neck: Yes normal visual inspection and Yes no lymphadenopathy Lymphatic: no lymphadenopathy noted Chest Chest palpation & inspection: normal inspection of the chest Resp Effort & Inspection: normal respiratory effort, able to speak in complete sentences, no audible wheezes, no cough, no stridor, not tachypneic, no tripod positioning and no use of accessory muscles Auscultation: clear to auscultation bilaterally Cardio Jugular venous distension: no JVD Rate: regular rate Rhythm: regular rhythm Skin Other: warm, dry General skin exam: no rashes or lesions noted Neuro General: patient oriented x3 Cranial nerves: Yes Normal hearing present Cognition (Neuro): normal cognition Gait exam (Neuro): Normal gait present Extrem General: Yes normal to inspection, Yes capillary refill normal, Yes no clubbing, cyanosis or edema and Yes no pedal edema Psych Appearance: grossly normal and well kempt Speech and movement: Normal speech and movement present and Clear speech present Affect: normal affect Attitude: cooperative Thought process: Normal thought process present Thought content: Normal thought content present Insight: Good insight present (Psych) Judgement: Good judgement present (Psych) Assessment & Plan Assessment & Plan (1) Asthma: Code(s): J45.909 - Unspecified asthma, uncomplicated Category: Medical (2) DIEGO on CPAP: Comment: sleep study 2019 Code(s): G47.33 - Obstructive sleep apnea (adult) (pediatric) Category: Medical (3) Environmental allergies: Code(s): Z91.09 - Other allergy status, other than to drugs and biological substances Category: Medical Plan The patient will continue using Symbicort, two puffs in the morning and two at night, as it has been effective in managing her asthma symptoms. If patient with recurrent exacerbations may need to consider biologic. She is advised to use Airsupra at the first sign of exacerbation to prevent the need for oral prednisone. A PFT will be scheduled to assess lung function, and the patient is encouraged to contact the clinic if symptoms worsen. Allergy testing via blood work is planned to identify current triggers. The patient will continue using her CPAP machine nightly, as it has improved her sleep quality. Access to the CPAP machine data will be obtained to monitor pressures and ensure optimal settings. All questions were answered and patient is in agreement of plan. Will follow up to review results or sooner if needed. Orders: Orders Resp Allergy Profile Region I Today Z91.09 - Other allergy status, other than to drugs and biological substances Immunoglobulin E Today Z91.09 - Other allergy status, other than to drugs and biological substances Complete Blood Count Auto Diff Today Z91.09 - Other allergy status, other than to drugs and biological substances Medications: New albuterol sulfate 2.5 mg (3 mL) inhalation Q4-6H PRN 90 mL 3RF shortness of breath or wheezing Changed From budesonide-formoterol 160-4.5 mcg/actuation inhalation To budesonide-formoterol 160-4.5 mcg/actuation 2 inhalations inhalation BID 10.2 grams 6RF Coding Level of Care Code New Pt Level 4 (50082) Diagnoses Asthma J45.909 DIEGO on CPAP G47.33 Environmental allergies Z91.09
== END 2025-07-19 14:06 | disposition home or self-care (01) ==
LOC: HO.HPSW 13:15
PROVIDERS: PCP Nurse Practitioner Family; Referring Provider Nurse Practitioner Family; Visit Provider Nurse Practitioner Family
DX: J45.909 Unspecified asthma, uncomplicated (principal); G47.33 Obstructive sleep apnea (adult) (pediatric); Z91.09 Other allergy status, other than to drugs and biological substances
CPT/HCPCS: 99204

== ENCOUNTER 2025-09-20 10:37 | Outpatient (AMB) | payer OTHER, SELFPAY ==
[2025-09-20 10:40] VITALS: BP 144/76; PULSE 89; O2SAT 99; BMI 37.9
--- NOTE | 2025-09-20 10:40 | A.OFFVIS_ITS ---
Vital Signs 09/20/25 10:40 Height 5 ft 7 in Weight 242 lb 2 oz BMI 37.9 BP 144/76 H Blood Pressure Location Rt brachial Position Sitting Pulse 89 Pulse Source Pulse Oximeter Pulse Oximetry (%) 99 Oxygen Delivery Method Room Air Intake Visit Reasons: Asthma, DIEGO Allergies No Known Allergies Allergy (Verified 09/20/25 10:45) HPI HPI Asthma, DIEGO: Details: [place] is a pleasant 69 year old female, never smoker, with underlying asthma, DIEGO on CPAP, HTN and HLD. She has had a cough for a couple of weeks, which began after her had a similar illness following brain surgery. She reports that about six weeks ago, she experienced wheezing and started taking prednisone, which provided temporary relief. The cough later returned, initially dry, and has recently become productive with clear sputum, accompanied by watery eyes. For her asthma, she has been using AirSupra, which was clarified to be a short- acting rescue inhaler, rather than her prescribed maintenance medication, Symbicort. The patient has been under significant stress due to her 's recent brain surgery for a pituitary tumor, her daughter's hysterectomy, and her son-in-law's prostate cancer diagnosis, all within the last three months. The patient has a history of obstructive sleep apnea, diagnosed via a home sleep study in April 2020 which showed an AHI of 28.5 and an oxygen saturation eunice of 76%. She is compliant with her CPAP therapy at a pressure of 8 cmH2O, with recent data showing 100% usage, an AHI of 3.2, and no significant mask leak. Despite this, she reports poor sleep quality, restlessness, tossing and turning, frequent awakenings with nocturia, and leg cramps. 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 D[facility] is [facility] Surgical History (Updated 05/03/25 @ 15:05 by LEORA Devlin-) History of colonoscopy (~2017) History of carpal tunnel release of both wrists Social History Household Members: Spouse Both parents involved: No Caregiver staying overnight: No Housing: House Are you a primary post acute care registered nurse to a significant other at home: No Do you presently have visiting nurse or other home services: No 75 years or older and lives alone: No Alcohol intake: current Alcohol intake frequency: a few times a month Patient Tobacco Use Status: Never used Tobacco e-Cigarette/Vaping Use: Never Used Second Hand Smoke Exposure: No service: No Current occupational status: retired Cognitive needs: No Hearing needs: No Vision needs: Yes (wear glasses) Review of Systems Const Denies chills, Denies excessive sweating, Denies fever(s), Denies headache(s) and Denies night sweats Eyes Denies dry eyes and Reports itchy eyes ENT Reports Normal hearing present, Denies headache(s), Denies nasal congestion, Denies nasal discharge, Denies post nasal drip and Denies sore throat Card Denies chest pain, Denies chest pain at rest, Denies chest pain with activity, Denies claudication, Denies leg edema, Denies dyspnea, Denies dyspnea on exertion, Denies orthopnea and Denies paroxysmal nocturnal dyspnea Resp Denies change in phlegm color, Denies chest congestion, Reports cough, Denies hemoptysis, Denies excessive phlegm production, Denies pain on inspiration, Denies pain with cough, Denies dyspnea, Denies dyspnea on exertion, Denies stridor and Reports wheezing Musc Denies myalgias Neuro Reports Normal hearing present and Denies headache(s) Endo Denies excessive sweating Ten/Lymph Denies lymphadenopathy Aller/Immun Reports itchy eyes, Denies seasonal rhinorrhea and Reports wheezing Physical Exam Vital Signs: Last Vital Signs Pulse 89 09/20/25 10:40 BP 144/76 H 09/20/25 10:40 Pulse Ox 99 09/20/25 10:40 Oxygen Delivery Method Room Air 09/20/25 10:40 BMI result Body Mass Index 37.9 Neuro Cranial nerves: Yes Normal hearing present Assessment & Plan Assessment & Plan (1) Asthma: Code(s): J45.909 - Unspecified asthma, uncomplicated Category: Medical (2) DIEGO on CPAP: Comment: sleep study 2019 Code(s): G47.33 - Obstructive sleep apnea (adult) (pediatric) Category: Medical (3) Environmental allergies: Code(s): Z91.09 - Other allergy status, other than to drugs and biological substances Category: Medical Plan Discussed that her current cough is likely an exacerbation of her asthma, potentially triggered by a viral illness and significant stress. Sent a prescription for prednisone to her pharmacy. We reviewed her inhaler regimen, clarifying that Symbicort is her daily maintenance medication, and AirSupra is for rescue use only. Regarding her poor sleep, explained that while her CPAP data shows good control of her sleep apnea, her subjective symptoms are important. Recommended a trial of magnesium glycinate for sleep and we discussed repeating an in-lab sleep study to re-evaluate her pressure needs in the future, which she deferred for now. Advised her to follow up in 8 to 10 weeks, or to call us sooner if her symptoms change. All questions were answered and patient is in agreement of plan. Medications: New prednisone 40 mg (2 x 20 mg) PO DAILY 10 tabs 0RF Coding Level of Care Code Est Pt Level 4 (83214) Diagnoses Asthma J45.909 DIEGO on CPAP G47.33 Environmental allergies Z91.09
== END 2025-09-20 11:20 | disposition home or self-care (01) ==
LOC: HO.HPSW 10:38
PROVIDERS: PCP Nurse Practitioner Family; Visit Provider Nurse Practitioner Family
DX: J45.909 Unspecified asthma, uncomplicated (principal); G47.33 Obstructive sleep apnea (adult) (pediatric); Z91.09 Other allergy status, other than to drugs and biological substances
CPT/HCPCS: 99214